=== PATIENT | female | born 1950 | race Caucasian/White ===

== ENCOUNTER 2024-08-16 19:36 | Observation (INO) ==
--- NOTE | 2024-08-16 20:20 | Emergency Department Note ---
Impression & Plan Left leg paresthesias, Acute UTI, Facial droop ED Provider Note NAME: ZULEYKA TREVIÑO AGE: 74 SEX: F : 1950 ARRIVES VIA: Ambulance INFORMANT: Patient ED PROVIDER(S): Brody Magaña DO CHIEF COMPLAINT: Weakness, left-sided facial droop HPI: Patient is a 74-year-old female with dementia who presents to the ER with son present at bedside who has had left-sided facial droop which he noticed earlier today as well as left-sided weakness and numbness which was present yesterday. Patient denies all complaints including headache, chest pain, and belly pain. No urinary symptoms. Son believes that she currently at her baseline. No other exacerbating or remitting factors. ADDITIONAL HISTORY OBTAINED: Per HPI Chronic Medical/Social Conditions Affecting Care: Per HPI PAST MEDICAL HISTORY:See Below PAST SURGICAL HISTORY:See Below FAMILY HISTORY:See Below SOCIAL HISTORY:See Below HOME MEDICATIONS:See Below ALLERGIES:See Below VITALS:See Below PHYSICAL EXAMINATION: GENERAL: Sitting up in bed, alert, well appearing, well nourished, no distress, non-toxic EYE EXAM: normal conjunctiva. PERRL and EOM's grossly intact. OROPHARYNX: no exudate, no erythema, lips, buccal mucosa, and tongue normal and mucous membranes are moist NECK: supple, no nuchal rigidity, no adenopathy, non-tender LUNGS: Clear to auscultation. Normal chest wall mechanics HEART: no murmurs, S1 normal and S2 normal ABDOMEN: abdomen soft, non-tender, normo-active bowel sounds, no masses, no rebound or guarding. BACK: Back is symmetrical on inspection and there is no deformity, no midline tenderness, no CVA tenderness. SKIN: no rashes and no bruising UPPER EXTREMITIES: upper extremities are grossly normal. LOWER EXTREMITIES: No pitting edema. NEURO EXAM: Awake and alert at baseline per son, cranial nerves II-XII grossly intact, normal speech, no weakness of arms, no weakness of legs. MEDICAL DECISION MAKING: Patient is a 74-year-old female pleasantly demented who brought in by family for the below stated complaint. IV was established and blood work was obtained. Labs show no significant leukocytosis or anemia. BMP with mild hypokalemia 3.0. LFTs and bilirubin is unremarkable. Troponin negative. Lipase normal. UA was contaminated but does appear to be consistent with UTI. CT of the head was unremarkable. Chest x-ray was clean. Patient was given IV Rocephin. Updated bedside. Discussed case with the hospitalist for further evaluation management treatment in regards to the left-sided paresthesias and weakness. Consults/Care Managements Discussions: Per [facility] Triage Nursing notes reviewed. Limited review of prior medical records performed Vital Signs: reviewed and remarkable for HTN Differential diagnosis: Infection, dehydration, metabolic abnormality, hypo/hyperglycemia, electrolyte disturbance, anemia, hypoxia, cardiac sources, intracerebral event, toxicologic, neurologic, as well as other pathologies. ER treatment provided: See below Diagnostics interpreted by me include EKG and cardiac monitoring as listed below: -Cardiac Monitoring: An order was placed for continuous cardiac monitoring. The monitor shows a rate of 60 with sinus rhythm. -ECG: Sinus bradycardia rate of 50 Normal axis No PVCs Right bundle branch block T wave inversion V1 through V6 QTc 519 No significant change from previous -Laboratory studies:Interpreted by me as stated above in MDM and shown below. Imaging studies: Xrays: As interpreted by me: Portable AP upright 1 view of the chest shows no focal infiltrate CTs show: CT of the head was negative per radiology Procedures: None Critical Care: None Past Med/Surg History Problem List Facial droop (Acute) Acute UTI (Acute) Left leg paresthesias (Acute) Facial asymmetry Encounter for pre-operative examination Post-operative state Post-operative state Medical History (Updated 08/17/24 @ 00:23 by Brody Magaña DO) Osteoarthritis Urinary leakage Dementia Hypertension Hyperlipidemia Surgical History History of total knee replacement RT/LEFT History of cholecystectomy History of tooth extraction Family History Mother Family history of diabetes mellitus Social History Smoking Status: Never smoker Second Hand Exposure: No; Do You Dip or Chew Tobacco: No; Hx Alcohol Use: No Hx Substance Use: No Preferred Language: Sammarinese Communication Ability: Effective Chrome Tanner Required: No Beliefs That Will Affect Care: None Current Living Situation: Spouse Feels Safe at Home: Yes Assistive Devices: Denture - Upper, Glasses and Hearing Aid - Bilateral Allergies Allergies Allergy/AdvReac Type Severity Reaction Status Date / Time lisinopril AdvReac tightness Verified 09/13/18 07:43 in chest and dry throat Home Meds Home Medications Medication Instructions Recorded Confirmed aspirin 81 mg tablet,delayed 81 mg PO DAILY 08/03/18 08/16/24 release (Aspir-Low) atorvastatin 20 mg tablet 20 mg PO QAM 08/03/18 08/16/24 donepezil 10 mg tablet 10 mg PO QAM 08/03/18 08/16/24 losartan 50 mg tablet 25 mg PO QAM 08/03/18 08/16/24 quetiapine 50 mg tablet (Seroquel) 50 mg PO HS 09/17/23 08/16/24 hydrochlorothiazide 12.5 mg capsule 12.5 mg PO QAM 07/29/24 08/16/24 memantine 10 mg tablet 10 mg PO BID 07/29/24 08/16/24 Results & Data (ED) Vital Signs Vital Signs - 24 hr 08/16/24 19:44 08/16/24 19:47 08/16/24 19:58 Temperature 36.5 C Temperature Source Oral Pulse Rate 56 L 58 L Pulse Rate [Apical] 58 L Pulse Rhythm Regular Pulse Rhythm [Apical] Regular Pulse Strength Normal Pulse Strength [Apical] Normal Respiratory Rate 17 18 Respiratory Effort / Characteristics Non-Labored Non-Labored Respiratory Depth Normal Normal Respiratory Pattern Regular Regular Blood Pressure 170/103 H Blood Pressure [Right Arm] 168/84 H Blood Pressure Mean 125 Blood Pressure Mean [Right Arm] 112 Blood Pressure Position Sitting Blood Pressure Position [Right Arm] Sitting Pulse Oximetry 98 98 Oxygen Delivery Method Room Air Room Air Sepsis Recent Fever Within 48 Hours No Sepsis New/Unexplained Change in Mental Status No Sepsis Action Taken by Nursing No Action Required 08/16/24 20:44 08/16/24 21:44 08/16/24 23:00 Temperature Temperature Source Pulse Rate 56 L Pulse Rate [Apical] 48 L 52 L Pulse Rhythm Regular Pulse Rhythm [Apical] Regular Regular Pulse Strength Pulse Strength [Apical] Normal Normal Respiratory Rate 17 18 18 Respiratory Effort / Characteristics Non-Labored Non-Labored Respiratory Depth Normal Normal Respiratory Pattern Regular Regular Blood Pressure Blood Pressure [Right Arm] 169/74 H 151/91 H Blood Pressure Mean Blood Pressure Mean [Right Arm] 105 111 Blood Pressure Position Blood Pressure Position [Right Arm] Sitting Lying Pulse Oximetry 98 97 97 Oxygen Delivery Method Room Air Room Air Room Air Sepsis Recent Fever Within 48 Hours Sepsis New/Unexplained Change in Mental Status Sepsis Action Taken by Nursing 08/16/24 23:50 Temperature Temperature Source Pulse Rate 55 L Pulse Rate [Apical] Pulse Rhythm Pulse Rhythm [Apical] Pulse Strength Pulse Strength [Apical] Respiratory Rate Respiratory Effort / Characteristics Respiratory Depth Respiratory Pattern Blood Pressure Blood Pressure [Right Arm] Blood Pressure Mean Blood Pressure Mean [Right Arm] Blood Pressure Position Blood Pressure Position [Right Arm] Pulse Oximetry Oxygen Delivery Method Sepsis Recent Fever Within 48 Hours Sepsis New/Unexplained Change in Mental Status Sepsis Action Taken by Nursing Laboratory Data 08/16/24 20:40 08/16/24 20:40 Lab Results 08/16/24 08/16/24 Range/Units 20:40 21:10 WBC 6.57 (4.8-10.8) K/ul RBC 4.83 (4.20-5.40) M/uL Hgb 15.4 (12.0-16.0) g/dl Hct 43.7 (37.0-47.0) % MCV 90.5 (80.0-100.0) fL MCH 31.9 (25.0-34.0) pg MCHC 35.2 (32.0-36.0) g/dL RDW Std Deviation 41.5 (36.4-46.3) fL RDW Coeff of [place] 12.6 (11.5-14.5) % Plt Count 154 (130-400) K/uL MPV 10.1 (9.4-12.4) fL Immature Gran % (Auto) 0.5 % Neut % (Auto) 72.3 % Lymph % (Auto) 17.0 % [place] % (Auto) 9.0 % Eos % (Auto) 0.6 % Baso % (Auto) 0.6 % Neut # (Auto) 4.75 (1.40-6.50) K/uL Lymph # (Auto) 1.12 L (1.20-3.40) K/uL [place] # (Auto) 0.59 (0.11-0.59) K/uL Eos # (Auto) 0.04 (0.00-0.50) K/uL Baso # (Auto) 0.04 (0.00-0.20) K/uL Immature Gran # (Auto) 0.03 (0.01-0.20) K/uL Sodium 140 (136-145) mmol/L Potassium 3.0 L (3.5-5.1) mmol/L Chloride 100 (98-107) mmol/L Carbon Dioxide 29 (21-32) mmol/L Anion Gap 11 (3-11) BUN 18 (6-23) mg/dl Creatinine 1.07 (0.6-1.2) mg/dl Est Cr Clr Drug Dosing 43.1 ml/min eGFR 54.17 BUN/Creatinine Ratio 16.8 (10-20) Glucose 75 (70-99(Fasting)) mg/dl Calcium 8.2 L (8.6-10.3) mg/dl Total Bilirubin 1.2 H (0.2-1.0) mg/dl AST 46 H (13-39) U/L ALT 30 (7-52) U/L Alkaline Phosphatase 142 H (34-104) U/L Troponin I High Sens 9.3 (0-14) pg/ml Total Protein 5.8 L (6.0-8.3) gm/dl Albumin 3.6 (3.4-5.0) gm/dl Globulin 2.2 L (2.5-4.0) gm/dl Albumin/Globulin Ratio 1.6 (0.9-2) Lipase 45 (11-82) U/L Urine Color Yellow Urine Appearance Cloudy A (Clear) Urine pH 5.5 (4.5-7.5) Ur Specific [place] 1.017 (1.000-1.030) Urine Protein Negative (Negative) Urine Glucose (UA) Negative (Negative) Urine Ketones 1+ H (Negative) Urine Blood Negative (Negative) Urine Nitrite Negative (Negative) Urine Bilirubin Negative (Negative) Urine Urobilinogen Negative (Negative) Ur Leukocyte Esterase 2+ H (Negative) Urine WBC (Auto) 21-50 H (0-5) /hpf Urine RBC (Auto) 3-5 H (0-2) /hpf U Hyaline Cast (Auto) 3-5 H (0-2) /lpf U Epithel Cells (Auto) 6-10 H (0-2) /hpf Urine Bacteria (Auto) 3+ H (None Seen) Administered Medications Discontinued Medications Sodium Chloride (Nss) 1,000 mls @ 999 mls/hr IV .Q1H1M ONE Stop: 08/16/24 21:15 Last Infusion: 08/16/24 22:24 Dose: Infused Documented By: Admin: 08/16/24 21:17 Dose: 999 mls/hr Documented By: LETICIA Ceftriaxone Sodium (Rocephin) 2,000 mg in 50 mls @ 100 mls/hr IV NOW STA Stop: 08/16/24 22:12 Last Infusion: 08/16/24 22:52 Dose: Infused Documented By: Admin: 08/16/24 22:21 Dose: 100 mls/hr Documented By: LETICIA Ioversol (Optiray 320 125ml) 119 ml IV ONCE ONE Stop: 08/16/24 23:50 Last Admin: 08/16/24 23:50 Dose: 119 ml Documented By: [facility] Imaging Data Radiologist's Impression: Chest X-Ray 08/16/24 20:15 Exam(s): XR CXR 1 VIEW EXAM: XR Chest, 1 View CLINICAL HISTORY: Reason for exam: Chest pain, nonspecific. TECHNIQUE: Frontal view of the chest. COMPARISON: Chest radiograph On 07/29/2024 FINDINGS: Hardware: None. Lungs/pleura: Normal. No focal consolidation. No pleural effusion or pneumothorax. Heart/mediastinum: Normal. No cardiomegaly. Soft tissues: Unremarkable. Bones: No acute fracture. Upper abdomen: Normal. IMPRESSION: No acute disease identified. Electronically signed by: Liliana Cobb M.D. 08/16/24 22:[address] 08/16/24 20:15 CR Exam(s): CT HEAD Without Contrast EXAM: CT Head Without Intravenous Contrast CLINICAL HISTORY: Reason for exam: Left-sided weakness and facial droop. TECHNIQUE: Axial computed tomography images of the head/brain without intravenous contrast. CTDI is 37.69 mGy and DLP is 625.8 mGy-cm. Automated exposure control was utilized for the study. A dose lowering technique was utilized adhering to the principles of ALARA. COMPARISON: CT head on 06/29/2024 FINDINGS: Brain: No acute infarct or hemorrhage identified. No extra-axial fluid collection. No mass effect or midline shift. Scattered areas of hypoattenuation in the supratentorial white matter likely represent chronic small vessel ischemic changes. Ventricles and sulci: Prominence of the ventricles and sulci is likely secondary to cerebral volume loss. Bones: Mild hyperostosis frontalis interna. No bony lesion or acute fracture. Subcutaneous tissues: Normal. Sinuses: Normal. No air-fluid levels or mucosal thickening. Mastoid air cells: Normal. Orbits: Grossly unremarkable. Other: Atherosclerotic calcifications in the intracranial vasculature. IMPRESSION: 1. No acute intracranial abnormality. 2. Chronic small vessel ischemic changes and cerebral volume loss. Communications: Call Doctor Stroke Electronically signed by: Liliana Cobb M.D. 08/16/24 21:21 PM Discharge Plan Visit Data Chief Complaint: Illness Stated Complaint: NOT EATING/DRINKING ED Provider: Brody Magaña Discharge Problem: Left leg paresthesias, Acute UTI, Facial droop Forms Stand Alone Forms: My [facility] Prescriptions Prescriptions: No Action losartan 50 mg Tablet 25 mg PO QAM atorvastatin 20 mg Tablet 20 mg PO QAM donepezil 10 mg Tablet 10 mg PO QAM aspirin [Aspir-Low] 81 mg Tablet,Delayed Release (Dr/Ec) 81 mg PO DAILY quetiapine [Seroquel] 50 mg tablet 50 mg PO HS hydrochlorothiazide 12.5 mg capsule 12.5 mg PO QAM memantine 10 mg tablet 10 mg PO BID Referrals Referrals: Reshma Neumann DO [Primary Care Provider] -
[2024-08-16 21:05] LABS: Basophils # (auto) 0.04 K/uL (0.00-0.20); Basophils % (auto) 0.6 %; Eosinophils # (auto) 0.04 K/uL (0.00-0.50); Eosinophils % (auto) 0.6 %; Hematocrit (blood only) 43.7 % (37.0-47.0); Hemoglobin 15.4 g/dl (12.0-16.0); Immature Granulocytes # (auto) 0.03 K/uL (0.01-0.20); Immature Granulocytes % (auto) 0.5 %; Lymphocytes # (auto) 1.12 K/uL (1.20-3.40); Mean Corpuscular Hemoglobin 31.9 pg (25.0-34.0); Mean Corpuscular Hgb Conc 35.2 g/dL (32.0-36.0); Mean Corpuscular Volume 90.5 fL (80.0-100.0); Mean Platelet Volume 10.1 fL (9.4-12.4); Monocytes # (auto) 0.59 K/uL (0.11-0.59); Neutrophils # (auto) 4.75 K/uL (1.40-6.50); Neutrophils % (auto) 72.3 %; Platelet Count 154 K/uL (130-400); RDW Coefficient of Variation 12.6 % (11.5-14.5); RDW Standard Deviation 41.5 fL (36.4-46.3); Red Blood Count 4.83 M/uL (4.20-5.40); White Blood Count 6.57 K/ul (4.8-10.8)
[2024-08-16] MEDS: SODIUM CHLORIDE 0.9% 1,000 ML IV ONE (21:17)
[2024-08-16 21:20] LABS: Albumin Globulin Ratio 1.6 (0.9-2); Albumin Level 3.6 gm/dl (3.4-5.0); BUN Creatinine Ratio 16.8 (10-20); Bilirubin,Total 1.2 mg/dl (0.2-1.0); Calcium 8.2 mg/dl (8.6-10.3); Creatinine Clr Calc Pharmacy 43.1 ml/min; Globulin 2.2 gm/dl (2.5-4.0); Total Protein 5.8 gm/dl (6.0-8.3)
--- NOTE | 2024-08-16 21:22 | CT Scan Report ---
Exam(s): CT HEAD Without Contrast EXAM: CT Head Without Intravenous Contrast CLINICAL HISTORY: Reason for exam: Left-sided weakness and facial droop. TECHNIQUE: Axial computed tomography images of the head/brain without intravenous contrast. CTDI is 37.69 mGy and DLP is 625.8 mGy-cm. Automated exposure control was utilized for the study. A dose lowering technique was utilized adhering to the principles of ALARA. COMPARISON: CT head on 06/29/2024 FINDINGS: Brain: No acute infarct or hemorrhage identified. No extra-axial fluid collection. No mass effect or midline shift. Scattered areas of hypoattenuation in the supratentorial white matter likely represent chronic small vessel ischemic changes. Ventricles and sulci: Prominence of the ventricles and sulci is likely secondary to cerebral volume loss. Bones: Mild hyperostosis frontalis interna. No bony lesion or acute fracture. Subcutaneous tissues: Normal. Sinuses: Normal. No air-fluid levels or mucosal thickening. Mastoid air cells: Normal. Orbits: Grossly unremarkable. Other: Atherosclerotic calcifications in the intracranial vasculature. IMPRESSION: 1. No acute intracranial abnormality. 2. Chronic small vessel ischemic changes and cerebral volume loss. Communications: Call Doctor Stroke Electronically signed by: Liliana Cobb M.D. 08/16/24 21:21 PM
[2024-08-16 21:26] LABS: Troponin I High Sensitivity 9.3 pg/ml (0-14)
[2024-08-16 21:39] LABS: Appearance Urine Cloudy (Clear); Bacteria Urine Automated 3+ (None Seen); Bilirubin Urine Negative (Negative); Blood Urine Negative (Negative); Color Urine Yellow; Glucose Urine UA Negative (Negative); Ketones Urine 1+ (Negative); Leukocyte Esterase Urine 2+ (Negative); Nitrite Urine Negative (Negative); Protein Urine Negative (Negative); Specific Gravity Urine 1.017 (1.000-1.030); Urobilinogen Urine Negative (Negative); WBC Urine Automated 21-50 /hpf (0-5); pH Urine 5.5 (4.5-7.5)
--- NOTE | 2024-08-16 22:12 | XRay Report ---
Exam(s): XR CXR 1 VIEW EXAM: XR Chest, 1 View CLINICAL HISTORY: Reason for exam: Chest pain, nonspecific. TECHNIQUE: Frontal view of the chest. COMPARISON: Chest radiograph On 07/29/2024 FINDINGS: Hardware: None. Lungs/pleura: Normal. No focal consolidation. No pleural effusion or pneumothorax. Heart/mediastinum: Normal. No cardiomegaly. Soft tissues: Unremarkable. Bones: No acute fracture. Upper abdomen: Normal. IMPRESSION: No acute disease identified. Electronically signed by: Liliana Cobb M.D. 08/16/24 22:11 PM
[2024-08-16] MEDS: cefTRIAXone SODIUM 2,000 MG/50 ML BAG IV STA (22:21)
--- NOTE | 2024-08-16 22:31 | History & Physical Report ---
Date of Service August 16, 2024 Assessment & Plan (1) UTI (urinary tract infection): (2) Facial asymmetry: Plan: Patient is a 74-year-old female with Past medical history of hypertension, prediabetes, dyslipidemia, CKD stage IIIa, late onset Alzheimer's dementia Was brought to the hospital by her son for concern of left sided facial droop decreased appetite. Left-sided facial droop, possible CVA Patient was brought to the hospital by her son for concern of left-sided facial droop. Neuro examination on admission did not show any focal neurological finding. However, son reports some facial droop at corner of the mouth compared to baseline. CT head without contrast did not show any acute finding. Obtain CT head and neck with contrast, MRI brain without contrast, echocardiogram with bubble study, PT/OT/BUSINESS REPORTING DEVELOPER eval, Continue on aspirin, increase Lipitor to 40 mg once a day, obtain lipid panel, A1c. Neurology consult in am Acute UTI No leukocytosis present. Urinalysis positive for infection. Started on ceftriaxone for acute UTI; follow-up on final culture results Abnormal EKG EKG on admission showed sinus bradycardia with right bundle branch block, T wave abnormality in inferior lateral leads. Previous EKGs from March 2024 showed similar finding. high sen troponin negative Will obtain echocardiogram tele monitoring Hypokalemia- Repleted, monitor Chronic conditions; Late onset Alzheimer's dementia - continue on memantine, donepezil, Seroquel Hypertension- continue losartan, hydrochlorothiazide Dyslipidemiacontinue on Lipitor Full code DVT prophylaxis heparin Time spent evaluating patient, direct bedside care, chart review, placing orders, interpretation of diagnostic studies, discussion with consultants, patient, and family members, as well as other required patient management activities is 75 minutes Please note the above document was generated using voice recognition software. It may contain grammatical, syntax or spelling errors. Any formal questions or concerns about the content, text or information contained within the body of this dictation should be directly addressed to the provider for clarification History of Present Illness Chief Complaint: Left-sided facial droop for 2 days Primary Care Provider: Reshma Neumann, History obtained from interview with the patient's Son as patient has advanced dementia and chart review Past medical history of hypertension, prediabetes, dyslipidemia, CKD stage IIIa, late onset Alzheimer's dementia Patient was brought to the hospital by her son for concern of left facial droop for last 2 days. He reports that he noticed her left corner of her mouth has slightly drooped compared to before. He denies any reports of any weakness of any other body parts. He has also noticed that she is drinking and eating less or compared to before. No reports of fever, chills, complaints of abdominal pain, chest pain, shortness of breath. Patient reported that she is comfortable; denied any pain or discomfort. She was able to follow simple commands but was not able to provide more information. On presentation to the ED, patient was hypertensive, afebrile and saturating well on room air. No leukocytosis present. BMP remarkable for mild hypokalemia. CMP showed mildly elevated bilirubin of 1.2, AST of 46 and ALP of 142(chronically elevated). Urinalysis positive for infection. CT head without contrast did not show any acute finding. Patient referred for admission. Allergies Allergy/AdvReac Type Severity Reaction Status Date / Time lisinopril AdvReac tightness Verified 09/13/18 07:43 in chest and dry throat Home Medications Medication Instructions Recorded Confirmed Type aspirin 81 mg tablet,delayed 81 mg PO DAILY 08/03/18 08/16/24 History release (Aspir-Low) atorvastatin 20 mg tablet 20 mg PO QAM 08/03/18 08/16/24 History donepezil 10 mg tablet 10 mg PO QAM 08/03/18 08/16/24 History losartan 50 mg tablet 25 mg PO QAM 08/03/18 08/16/24 History quetiapine 50 mg tablet (Seroquel) 50 mg PO HS 09/17/23 08/16/24 History hydrochlorothiazide 12.5 mg capsule 12.5 mg PO QAM 07/29/24 08/16/24 History memantine 10 mg tablet 10 mg PO BID 07/29/24 08/16/24 History Past Med/Surg History Problem List Facial asymmetry Encounter for pre-operative examination Post-operative state Post-operative state Medical History (Updated 08/16/24 @ 22:34 by Lukas Blankenship MD) Osteoarthritis Urinary leakage Dementia Hypertension Hyperlipidemia Surgical History History of total knee replacement RT/LEFT History of cholecystectomy History of tooth extraction Family History Mother Family history of diabetes mellitus Social History Smoking Status: Never smoker Second Hand Exposure: No; Do You Dip or Chew Tobacco: No; Hx Alcohol Use: No Hx Substance Use: No Preferred Language: Kittitian Communication Ability: Effective Pie Bottomer Required: No Beliefs That Will Affect Care: None Current Living Situation: Spouse Feels Safe at Home: Yes Assistive Devices: Denture - Upper, Glasses and Hearing Aid - Bilateral Review of Systems Review of Systems: All systems reviewed & are unremarkable except as noted in Subjective Physical Exam Physical Exam: Constitutional: Awake, alert oriented to self. Able to follow simple commands. Respiratory: normal respiratory effort, lungs clear to auscultation, no wheeze, rales, rhonchi. Normal insp/exp effort, no accessory muscle use Cardiovascular: RRR, no murmur, no edema Vessels: no JVD or carotid bruit Chest: normal inspection of chest Abdomen: normal bowel sounds, soft, nontender, no hepatosplenomegaly Musculoskeletal: no cyanosis or clubbing, extremities motor strength 5/5 Skin: no rashes, warm and dry normal turgor Neurologic: PERRL, EOMI, accommodation nl. Questionable left lower facial droop; no asymmetry when smiling. Strength intact in all extremity 5 x 5. Sensation intact Results & Data Results & Data Vital Signs (Past 12 Hours) Vital Signs Temp Pulse Pulse Resp BP BP Pulse Ox 08/16/24 21:44 48 L 18 169/74 H 97 08/16/24 20:44 56 L 17 98 08/16/24 19:58 58 L 18 168/84 H 98 08/16/24 19:47 36.5 C 58 L 17 170/103 H 98 08/16/24 19:44 56 L O2 Del Method 08/16/24 21:44 Room Air 08/16/24 20:44 Room Air 08/16/24 19:58 Room Air 08/16/24 19:47 Room Air 08/16/24 19:44 (1) UTI (urinary tract infection) Hematuria presence: with hematuria Urinary tract infection type: acute cystitis Qualified Code(s): N30.01 - Acute cystitis with hematuria
[2024-08-16] MEDS: OPTIRAY 320 125ml IV ONE (23:50)
[2024-08-17] MEDS ORDERED: MAGNESIUM HYDROXIDE SUSP 30 ML UDC PO PRN (00:38)
[2024-08-17] MEDS ORDERED: ACETAMINOPHEN 325 MG TAB PO PRN (00:38)
--- NOTE | 2024-08-17 01:03 | CT Scan Report ---
Exam(s): CTA HEAD With Contrast IV Amt: 119 cc opti 320 EXAM: CT Angiography Head With Intravenous Contrast CLINICAL HISTORY: Reason for exam: concern of stroke. TECHNIQUE: Axial computed tomographic angiography images of the head with intravenous contrast. CTDI is 22.84 mGy and DLP is 434.53 mGy-cm. Automated exposure control was utilized for the study. A dose lowering technique was utilized adhering to the principles of ALARA. MIP reconstructed images were created and reviewed. CONTRAST: Patient received 119 cc opti 320 of IV contrast COMPARISON: None FINDINGS: Right internal carotid artery: No acute findings. Intracranial segment is patent with no significant stenosis. No aneurysm. Right anterior cerebral artery: Unremarkable. No occlusion or significant stenosis. No aneurysm. Right middle cerebral artery: Unremarkable. No occlusion or significant stenosis. No aneurysm. Right posterior cerebral artery: Unremarkable. No occlusion or significant stenosis. No aneurysm. Right vertebral artery: Unremarkable as visualized. Left internal carotid artery: No acute findings. Intracranial segment is patent with no significant stenosis. No aneurysm. Left anterior cerebral artery: Unremarkable. No occlusion or significant stenosis. No aneurysm. Left middle cerebral artery: Unremarkable. No occlusion or significant stenosis. No aneurysm. Left posterior cerebral artery: Unremarkable. No occlusion or significant stenosis. No aneurysm. Left vertebral artery: Unremarkable as visualized. Basilar artery: Unremarkable. No occlusion or significant stenosis. No aneurysm. IMPRESSION: Normal head CTA. Electronically signed by: Liliana Cobb M.D. 08/17/24 01:02 AM
--- NOTE | 2024-08-17 01:08 | CT Scan Report ---
Exam(s): CTA NECK With Contrast IV Amt: 119 cc opti 320 EXAM: CT Angiography Neck With Intravenous Contrast CLINICAL HISTORY: Reason for exam: concern of stroke. TECHNIQUE: Routine carotid CT angiography protocol was performed with intravenous contrast. NASCET criteria using the distal ICAs for comparison were used for evaluation of stenoses. CTDI is 22.84 mGy and DLP is 434.53 mGy-cm. Automated exposure control was utilized for the study. A dose lowering technique was utilized adhering to the principles of ALARA. MIP reconstructed images were created and reviewed. CONTRAST: Patient received 119 cc opti 320 of IV contrast COMPARISON: None FINDINGS: VASCULATURE: Right common carotid artery: Unremarkable. No occlusion or significant stenosis. No dissection. Right internal carotid artery: Atherosclerotic calcifications of the right carotid bulb. No significant stenosis. No dissection. Right external carotid artery: Unremarkable. No occlusion. Right vertebral artery: Dominant right vertebral artery. No occlusion or significant stenosis. No dissection. Left common carotid artery: Unremarkable. No occlusion or significant stenosis. No dissection. Left internal carotid artery: Atherosclerotic calcifications in the left carotid bulb. No significant stenosis. No dissection. Left external carotid artery: Unremarkable. No occlusion. Left vertebral artery: Unremarkable. No occlusion or significant stenosis. No dissection. Aorta: Atherosclerotic changes in aorta. NECK: Bones/joints: Degenerative changes of the spine. No acute fracture. Soft tissues: Unremarkable. Thyroid: Heterogeneous thyroid could be further evaluated with ultrasound if clinically indicated. Lung apices: Clear. CAROTID STENOSIS REFERENCE USING NASCET CRITERIA: % ICA stenosis = (1 - narrowest ICA diameter/diameter of distal cervical ICA) x 100. Mild - <50% stenosis. Moderate - 50-69% stenosis. Severe - 70-94% stenosis. Near occlusion - 95-99% stenosis. Occluded - 100% stenosis. IMPRESSION: No significant stenosis, occlusion, or dissection. Electronically signed by: Liliana Cobb M.D. 08/17/24 01:07 AM
[2024-08-17] MEDS: ATORVASTATIN 40 MG TAB PO SCH (03:02)
[2024-08-17] MEDS: POTASSIUM CHLORIDE PWD 20 MEQ PACK PO ONE (03:02)
[2024-08-17 04:23] LABS: Basophils # (auto) 0.04 K/uL (0.00-0.20); Basophils % (auto) 0.6 %; Eosinophils # (auto) 0.07 K/uL (0.00-0.50); Hematocrit (blood only) 43.2 % (37.0-47.0); Hemoglobin 15.3 g/dl (12.0-16.0); Immature Granulocytes # (auto) 0.03 K/uL (0.01-0.20); Immature Granulocytes % (auto) 0.4 %; Lymphocytes # (auto) 1.25 K/uL (1.20-3.40); Lymphocytes % (auto) 17.8 %; Mean Corpuscular Hemoglobin 32.1 pg (25.0-34.0); Mean Corpuscular Hgb Conc 35.4 g/dL (32.0-36.0); Mean Corpuscular Volume 90.6 fL (80.0-100.0); Mean Platelet Volume 9.8 fL (9.4-12.4); Neutrophils # (auto) 4.93 K/uL (1.40-6.50); Neutrophils % (auto) 70.2 %; Platelet Count 141 K/uL (130-400); RDW Coefficient of Variation 12.5 % (11.5-14.5); RDW Standard Deviation 41.6 fL (36.4-46.3); Red Blood Count 4.77 M/uL (4.20-5.40); White Blood Count 7.02 K/ul (4.8-10.8)
[2024-08-17 04:38] LABS: Albumin Level 3.4 gm/dl (3.4-5.0); BUN Creatinine Ratio 15.5 (10-20); Bilirubin Direct 0.3 mg/dl (0-0.2); Bilirubin,Total 0.8 mg/dl (0.2-1.0); Calcium 8.2 mg/dl (8.6-10.3); Chol HDL Ratio 3.4 (0-5); Creatinine Clr Calc Pharmacy 44.8 ml/min; Potassium 2.8 mmol/L (3.5-5.1); Total Protein 5.6 gm/dl (6.0-8.3)
[2024-08-17] MEDS: HEPARIN SOD 5,000 UNIT/0.5 ML VIAL SQ SCH (05:50)
[2024-08-17 07:31] LABS: Estimated Average Glucose 91 mg/dl; Hemoglobin A1C 4.8 % (4.5-5.6)
[2024-08-17] MEDS: DONEPEZIL HCL 10 MG TAB PO SCH (08:36)
[2024-08-17] MEDS: ASPIRIN 81 MG ECTAB PO SCH (08:36)
[2024-08-17] MEDS: hydroCHLOROthiazide 25 MG TAB PO SCH (08:37)
[2024-08-17] MEDS: MEMANTINE HCL 10 MG TAB PO SCH (08:37)
[2024-08-17] MEDS: LOSARTAN POTASSIUM 25 MG TAB PO SCH (08:37)
[2024-08-17] MEDS: POTASSIUM CHLORIDE CRTAB 20 MEQ TABCR PO SCH (11:16)
--- NOTE | 2024-08-17 12:04 | Magnetic Resonance Report ---
MR brain wo con HISTORY: 74 years-old Female rule out stroke acute strokelike symptoms COMPARISON: Head CT 08/16/2024 TECHNIQUE: Multiplanar multisequence MRI of the brain was obtained without IV contrast. FINDINGS: No restricted diffusion to suggest acute or subacute infarct. Midline structures appear unremarkable. Degenerative changes of the cervical spine. Study is mildly motion degraded. No acute intracranial hemorrhage, midline shift, abnormal extra axial collection, hydrocephalus or in tra-axial mass. Involutional changes with mild scattered T2/FLAIR hyperintense foci throughout the wh ite matter. Cerebral venous sinuses and major arterial flow voids appear patent. Right-sided lens rep air. Trace left mastoid effusion. IMPRESSION: 1. No acute intracranial abnormality, specifically there is no acute or subacute infarct identified. 2. Involutional changes with suggestion of mild chronic microvascular ischemic disease. ACT 112: Negative or not required by law. The above report was generated using voice recognition software. It may contain grammatical, syntax o r spelling errors. Electronically signed by: John Cobb M.D. 08/17/2024 12:03 PM
[2024-08-17] MEDS: POTASSIUM CHLORIDE 20 MEQ/15 ML UDC PO SCH (12:08)
[2024-08-17] MEDS: POTASSIUM CHLORIDE / WTR 10 MEQ/100 ML PLCT IV SCH (12:08)
--- NOTE | 2024-08-17 12:51 | Neurology Consultation ---
Date of Consultation August 17, 2024 Assessment & Plan (1) Facial droop: No evidence of acute ischemic stroke Recommend continue frequent neurological assessments Obtain stat CT brain without contrast for any acute neurological decline Continue to monitor/control blood pressure & blood glucose Continue to monitor telemetry closely Continue to monitor for s/s of infection Agree with continued antimicrobial therapy Continue to monitor renal and hepatic function, keep euvolemic Metabolic workup should include hgbA1c, fasting lipids Recommend continue daily ASA Consider DAPT for at least 3 weeks Recommend continue high dose statin therapy indefinitely if tolerated Ok from neurology perspective for VTE prophylaxis PT/OT/SLT to eval and treat Follow up outpatient Neurology PRN Telehealth Consultation Telehealth Information Telehealth Information: I performed this visit using a real-time telehealth connection between my location and the patients location ([facility]). After connec ting through interactive tele-video, patient was identified by name and date of and/or wristband check.Patient (or authorized healthcare appliance service representative) was informed that this was a telemedicine visit and it was being conducted confidentially over secure lines. My office door was closed and no one else was present in the room with me.Patient (or authorized healthcare appliance service representative) provided consent to proceed with the visit, expressed an understanding of privacy and security of the telemedicine visit, and gave permission to have a hospital appliance service representative in the room in order to assist with the visit and to conduct portions of the visit, as needed. I informed the patient (or authorized healthcare appliance service representative) that I reviewed their record and presented the opportunity for them to ask any questions regarding the visit today. The patient agreed to participate. History of Present Illness Reason for Consultation: Left sided facial droop Requesting Physician: Dr. Prince Attending Physician: Tolu Prince MD History of Present Illness 74yo female with past medical hx significant for HTN, Dyslipidemia, CKD, Alzheimer's dementia, prediabetes presented to the ER via family who reported she was having decreased appetite and left facial asymmetry. She was hypertensive on arrival. Urinalysis has been reportedly indicative of UTI for which she has been initiated on antimicrobial tx. She has undergone stroke imaging including CT brain without contrast, personally reviewed, revealing no overt evidence of hemorrhage. CT angiographic studies of head and neck, also personally reviewed, reveal no overt evidence of large vessel occlusion or significant/flow limiting stenosis. She has also undergone an MRI of her brain depicting no evidence of acute subacute ischemic stroke. I have performed televideo consultation. Family at bedside helpful as historian. No evidence of facial asymmetry. Bilateral nasolabial folds appears symmetric. She is awake and will follow simple commands/mimic simple commands with repeated encouragement. Neurological exam is non lateralizing/nonfocal in terms of motor strength. Allergies Allergy/AdvReac Type Severity Reaction Status Date / Time lisinopril AdvReac tightness Verified 09/13/18 07:43 in chest and dry throat Home Medications Medication Instructions Recorded Confirmed Type aspirin 81 mg tablet,delayed 81 mg PO DAILY 08/03/18 08/16/24 History release (Aspir-Low) atorvastatin 20 mg tablet 20 mg PO QAM 08/03/18 08/16/24 History donepezil 10 mg tablet 10 mg PO QAM 08/03/18 08/16/24 History losartan 50 mg tablet 25 mg PO QAM 08/03/18 08/16/24 History quetiapine 50 mg tablet (Seroquel) 50 mg PO HS 09/17/23 08/16/24 History hydrochlorothiazide 12.5 mg capsule 12.5 mg PO QAM 07/29/24 08/16/24 History memantine 10 mg tablet 10 mg PO BID 07/29/24 08/16/24 History Patient History Medical History (Updated 08/17/24 @ 00:38 by Rosie Kimbrough) Osteoarthritis Urinary leakage Dementia Hypertension Hyperlipidemia Surgical History History of total knee replacement RT/LEFT History of cholecystectomy History of tooth extraction Family History Mother Family history of diabetes mellitus Social History Smoking Status: Never smoker Second Hand Exposure: No; Do You Dip or Chew Tobacco: No; Hx Alcohol Use: No Hx Substance Use: No Preferred Language: [place] Communication Ability: Unable Junior Underwriter Required: No Beliefs That Will Affect Care: None Current Living Situation: Spouse Feels Safe at Home: Yes Assistive Devices: Other Physical Exam Neurological Examination: Mental Status: Awake Appears in no distress Does not readily speak Will follow simple commands/mimic simple commands CN testing: I: Deferred II:No reported changes in visual acuity III/IV/: No evidence of gaze preference, hippus, nystagmus or roving eye movements V: Facial sensation reportedly grossly intact to light touch bilaterally VII: Facial movements appear without evidence of asymmetry-able to smile, and close eyes tightly VIII: Hearing appears grossly intact to loud voice bilaterally IX/X: Palate is unable to be accurately visualized XI: Shoulder shrug appears symmetric/ grossly intact bilaterally XII: Tongue protrudes midline without evidence of biting Motor exam: Strength appears grossly intact/symmetric in all extremities Sensory: Sensation is reportedly grossly intact throughout Coordination: Deferred Reflexes: Deferred Gait: Deferred Results & Data Vital Signs (Past 12 Hours) Vital Signs Temp Pulse Pulse Resp BP Pulse Ox Pulse Ox 08/17/24 12:07 55 L 15 139/76 95 08/17/24 08:32 36.5 C 51 L 15 128/73 96 08/17/24 07:23 45 L 08/17/24 02:00 50 L 08/17/24 01:09 53 L 18 158/75 H 98 08/17/24 01:09 98 O2 Del Method O2 Del Method 08/17/24 12:07 Room Air 08/17/24 08:32 Room Air 08/17/24 07:23 08/17/24 02:00 08/17/24 01:09 Room Air 08/17/24 01:09 Room Air Laboratory Results Abnormal lab results 08/16/24 08/16/24 08/17/24 Range/Units 20:40 21:10 04:07 Lymph # (Auto) 1.12 L (1.20-3.40) K/uL [place] # (Auto) 0.70 H (0.11-0.59) K/uL Potassium 3.0 L 2.8 L (3.5-5.1) mmol/L Calcium 8.2 L 8.2 L (8.6-10.3) mg/dl Total Bilirubin 1.2 H (0.2-1.0) mg/dl Direct Bilirubin 0.3 H (0-0.2) mg/dl AST 46 H 43 H (13-39) U/L Alkaline Phosphatase 142 H 134 H (34-104) U/L Total Protein 5.8 L 5.6 L (6.0-8.3) gm/dl Globulin 2.2 L (2.5-4.0) gm/dl Urine Appearance Cloudy A (Clear) Urine Ketones 1+ H (Negative) Ur Leukocyte Esterase 2+ H (Negative) Urine WBC (Auto) 21-50 H (0-5) /hpf Urine RBC (Auto) 3-5 H (0-2) /hpf U Hyaline Cast (Auto) 3-5 H (0-2) /lpf U Epithel Cells (Auto) 6-10 H (0-2) /hpf Urine Bacteria (Auto) 3+ H (None Seen) Diagnostic Findings Chest X-Ray 08/16/24 20:15 Exam(s): XR CXR 1 VIEW EXAM: XR Chest, 1 View CLINICAL HISTORY: Reason for exam: Chest pain, nonspecific. TECHNIQUE: Frontal view of the chest. COMPARISON: Chest radiograph On 07/29/2024 FINDINGS: Hardware: None. Lungs/pleura: Normal. No focal consolidation. No pleural effusion or pneumothorax. Heart/mediastinum: Normal. No cardiomegaly. Soft tissues: Unremarkable. Bones: No acute fracture. Upper abdomen: Normal. IMPRESSION: No acute disease identified. Electronically signed by: Liliana Cobb M.D. 08/16/24 22:[address] 08/16/24 20:15 CR Exam(s): CT HEAD Without Contrast EXAM: CT Head Without Intravenous Contrast CLINICAL HISTORY: Reason for exam: Left-sided weakness and facial droop. TECHNIQUE: Axial computed tomography images of the head/brain without intravenous contrast. CTDI is 37.69 mGy and DLP is 625.8 mGy-cm. Automated exposure control was utilized for the study. A dose lowering technique was utilized adhering to the principles of ALARA. COMPARISON: CT head on 06/29/2024 FINDINGS: Brain: No acute infarct or hemorrhage identified. No extra-axial fluid collection. No mass effect or midline shift. Scattered areas of hypoattenuation in the supratentorial white matter likely represent chronic small vessel ischemic changes. Ventricles and sulci: Prominence of the ventricles and sulci is likely secondary to cerebral volume loss. Bones: Mild hyperostosis frontalis interna. No bony lesion or acute fracture. Subcutaneous tissues: Normal. Sinuses: Normal. No air-fluid levels or mucosal thickening. Mastoid air cells: Normal. Orbits: Grossly unremarkable. Other: Atherosclerotic calcifications in the intracranial vasculature. IMPRESSION: 1. No acute intracranial abnormality. 2. Chronic small vessel ischemic changes and cerebral volume loss. Communications: Call Doctor Stroke Electronically signed by: Liliana Cobb M.D. 08/16/24 21:21 PM Head CTA 08/16/24 22:35 Exam(s): CTA HEAD With Contrast IV Amt: 119 cc opti 320 EXAM: CT Angiography Head With Intravenous Contrast CLINICAL HISTORY: Reason for exam: concern of stroke. TECHNIQUE: Axial computed tomographic angiography images of the head with intravenous contrast. CTDI is 22.84 mGy and DLP is 434.53 mGy-cm. Automated exposure control was utilized for the study. A dose lowering technique was utilized adhering to the principles of ALARA. MIP reconstructed images were created and reviewed. CONTRAST: Patient received 119 cc opti 320 of IV contrast COMPARISON: None FINDINGS: Right internal carotid artery: No acute findings. Intracranial segment is patent with no significant stenosis. No aneurysm. Right anterior cerebral artery: Unremarkable. No occlusion or significant stenosis. No aneurysm. Right middle cerebral artery: Unremarkable. No occlusion or significant stenosis. No aneurysm. Right posterior cerebral artery: Unremarkable. No occlusion or significant stenosis. No aneurysm. Right vertebral artery: Unremarkable as visualized. Left internal carotid artery: No acute findings. Intracranial segment is patent with no significant stenosis. No aneurysm. Left anterior cerebral artery: Unremarkable. No occlusion or significant stenosis. No aneurysm. Left middle cerebral artery: Unremarkable. No occlusion or significant stenosis. No aneurysm. Left posterior cerebral artery: Unremarkable. No occlusion or significant stenosis. No aneurysm. Left vertebral artery: Unremarkable as visualized. Basilar artery: Unremarkable. No occlusion or significant stenosis. No aneurysm. IMPRESSION: Normal head CTA. Electronically signed by: Liliana Cobb M.D. 08/17/24 01:02 AM Neck CTA 08/16/24 22:35 Exam(s): CTA NECK With Contrast IV Amt: 119 cc opti 320 EXAM: CT Angiography Neck With Intravenous Contrast CLINICAL HISTORY: Reason for exam: concern of stroke. TECHNIQUE: Routine carotid CT angiography protocol was performed with intravenous contrast. NASCET criteria using the distal ICAs for comparison were used for evaluation of stenoses. CTDI is 22.84 mGy and DLP is 434.53 mGy-cm. Automated exposure control was utilized for the study. A dose lowering technique was utilized adhering to the principles of ALARA. MIP reconstructed images were created and reviewed. CONTRAST: Patient received 119 cc opti 320 of IV contrast COMPARISON: None FINDINGS: VASCULATURE: Right common carotid artery: Unremarkable. No occlusion or significant stenosis. No dissection. Right internal carotid artery: Atherosclerotic calcifications of the right carotid bulb. No significant stenosis. No dissection. Right external carotid artery: Unremarkable. No occlusion. Right vertebral artery: Dominant right vertebral artery. No occlusion or significant stenosis. No dissection. Left common carotid artery: Unremarkable. No occlusion or significant stenosis. No dissection. Left internal carotid artery: Atherosclerotic calcifications in the left carotid bulb. No significant stenosis. No dissection. Left external carotid artery: Unremarkable. No occlusion. Left vertebral artery: Unremarkable. No occlusion or significant stenosis. No dissection. Aorta: Atherosclerotic changes in aorta. NECK: Bones/joints: Degenerative changes of the spine. No acute fracture. Soft tissues: Unremarkable. Thyroid: Heterogeneous thyroid could be further evaluated with ultrasound if clinically indicated. Lung apices: Clear. CAROTID STENOSIS REFERENCE USING NASCET CRITERIA: % ICA stenosis = (1 - narrowest ICA diameter/diameter of distal cervical ICA) x 100. Mild - <50% stenosis. Moderate - 50-69% stenosis. Severe - 70-94% stenosis. Near occlusion - 95-99% stenosis. Occluded - 100% stenosis. IMPRESSION: No significant stenosis, occlusion, or dissection. Electronically signed by: Liliana Cobb M.D. 08/17/24 01:07 AM Brain MRI 08/17/24 00:38 MR brain wo con HISTORY: 74 years-old Female rule out stroke acute strokelike symptoms COMPARISON: Head CT 08/16/2024 TECHNIQUE: Multiplanar multisequence MRI of the brain was obtained without IV contrast. FINDINGS: No restricted diffusion to suggest acute or subacute infarct. Midline structures appear unremarkable. Degenerative changes of the cervical spine. Study is mildly motion degraded. No acute intracranial hemorrhage, midline shift, abnormal extra axial collection, hydrocephalus or intra-axial mass. Involutional changes with mild scattered T2/FLAIR hyperintense foci throughout the white matter. Cerebral venous sinuses and major arterial flow voids appear patent. Right-sided lens repair. Trace left mastoid effusion. IMPRESSION: 1. No acute intracranial abnormality, specifically there is no acute or subacute infarct identified. 2. Involutional changes with suggestion of mild chronic microvascular ischemic disease. ACT 112: Negative or not required by law. The above report was generated using voice recognition software. It may contain grammatical, syntax or spelling errors. Electronically signed by: John Cobb M.D. 08/17/2024 12:03 PM Medications Administered Home Medications Medication Instructions Recorded Confirmed Last Taken aspirin 81 mg tablet,delayed 81 mg PO DAILY 08/03/18 08/16/24 09/17/23 release (Aspir-Low) atorvastatin 20 mg tablet 20 mg PO QAM 08/03/18 08/16/24 09/17/23 donepezil 10 mg tablet 10 mg PO QAM 08/03/18 08/16/24 09/17/23 losartan 50 mg tablet 25 mg PO QAM 08/03/18 08/16/24 09/17/23 quetiapine 50 mg tablet (Seroquel) 50 mg PO HS 09/17/23 08/16/24 09/17/23 hydrochlorothiazide 12.5 mg capsule 12.5 mg PO QA 07/29/24 08/16/24 Unknown memantine 10 mg tablet 10 mg PO BID 07/29/24 08/16/24 Unknown Active Medications Generic Name Dose Route Start Last Admin Trade Name Freq PRN Reason Stop Dose Admin Aspirin 81 mg 08/17/24 09:00 08/17/24 08:36 Aspirin 81 Mg Ectab PO 09/16/24 08:59 81 mg DAILY DEMARIO Administration Atorvastatin Calcium 40 mg 08/17/24 00:38 08/17/24 08:37 Atorvastatin 40 Mg Tab PO 09/16/24 00:37 40 mg QAM DEMARIO Administration Donepezil HCl 10 mg 08/17/24 09:00 08/17/24 08:36 Donepezil Hcl 10 Mg Tab PO 09/16/24 08:59 10 mg QAM DEMARIO Administration Heparin Sodium (Porcine) 5,000 units 08/17/24 06:00 08/17/24 05:50 Heparin Sod 5,000 Unit/0.5 Ml Vial SQ 09/16/24 05:59 5,000 units Q8 DEMARIO Administration Hydrochlorothiazide 12.5 mg 08/17/24 09:00 08/17/24 08:37 Hydrochlorothiazide 25 Mg Tab PO 09/16/24 08:59 12.5 mg QAM DEMARIO Administration Potassium Chloride 10 meq in 100 mls @ 100 mls/hr 08/17/24 10:30 08/17/24 12:08 K Syd / Wtr IV 08/17/24 14:29 100 mls/hr Q1H DEMARIO Administration Losartan Potassium 25 mg 08/17/24 09:00 08/17/24 08:37 Losartan Potassium 25 Mg Tab PO 09/16/24 08:59 25 mg QAM DEMARIO Administration Memantine 10 mg 08/17/24 09:00 08/17/24 08:37 Memantine Hcl 10 Mg Tab PO 09/16/24 08:59 10 mg BID DEMARIO Administration Potassium Chloride 40 meq 08/17/24 11:45 08/17/24 12:08 Potassium Chloride 20 Meq/15 Ml Udc PO 08/17/24 13:46 40 meq Q2H DEMARIO Administration
[2024-08-17] MEDS: NSS + 20MEQ KCL 20 MEQ/1,000 ML BAG IV SCH (13:20)
--- NOTE | 2024-08-17 13:41 | Electrocardiogram Report ---
Test Reason : Blood Pressure : */* mmHG Vent. Rate : 50 BPM Atrial Rate : 50 BPM P-R Int : 140 ms QRS Dur : 124 ms QT Int : 570 ms P-R-T Axes : 89 -7 -42 degrees QTcB Int : 519 ms Sinus bradycardia Right bundle branch block T wave abnormality, consider inferolateral ischemia Abnormal ECG When compared with ECG of 29-Jul-2024 12:21, Premature ventricular complexes are no longer Present Confirmed by Cruzito Perez ([id number]) on 08/17/2024 1:40:40 PM Referred By: REFERRED SELF Confirmed By: Cruzito Perez
--- NOTE | 2024-08-17 15:21 | Hospitalist Progress Note ---
Date of Service August 17, 2024 Assessment & Plan (1) UTI (urinary tract infection): (2) Facial asymmetry: Plan: 74-year-old female with Past medical history of hypertension, prediabetes, dyslipidemia, CKD stage IIIa, late onset Alzheimer's dementia was brought to the hospital by her son for concern of left sided facial droop x 2 days and decreased appetite. Left-sided facial droop, possible CVA Patient was brought to the hospital by her son for concern of left-sided facial droop. Neuro examination on admission did not show any focal neurological finding. However, son reported some facial droop at corner of the mouth compared to baseline. CT head without contrast did not show any acute finding. CTA head and CTA neck and MRI brain with no acute findings. A1c 4.8, LDL 51. PT/OT/DRY KILN FEEDER eval, Continue home aspirin, Lipitor increased to 40 mg daily. Continue. Continue frequent neurological assessment. Continue telemetry monitoring. Neurology evaluated, DAPT for 3 weeks. Follow-up neurology as an outpatient. Acute UTI: Urine culture positive for E. coli, follow final sensitivity results. Continue with Rocephin 08/16. Abnormal EKG EKG on admission showed sinus bradycardia with right bundle branch block, T wave abnormality in inferior lateral leads. Previous EKGs from March 2024 showed similar finding. high sen troponin negative. Echo with EF of 60 to 65%, LV wall motion normal, no interatrial shunt noted. Continue with daily monitoring. Hypokalemia- IV potassium replacement ordered today, repeat BMP at 5 PM and in AM. Chronic conditions; Late onset Alzheimer's dementia - continue on memantine, donepezil, Seroquel Hypertension- continue losartan, hydrochlorothiazide Dyslipidemiacontinue on Lipitor Full code DVT prophylaxis heparin Admission and Anticipated Discharge Date Admission Date: August 16, 2024 Subjective Patient was seen and examined at bedside. Patient was sitting up in bed, on room air, NAD, resting comfortably. Patient is hard of hearing, denies pain, ROS not able due to confusion/cognition status. Patient able to follow basic commands. Per RN patient not taking her potassium tablet but was able to take her other tablets. Patient put on IV potassium and potassium elixir to replenish hypokalemia noted in AM lab. Physical Exam Physical Exam: Constitutional: Awake, alert oriented to self. Able to follow simple commands. Respiratory: normal respiratory effort, lungs clear to auscultation, no wheeze, rales, rhonchi. Normal insp/exp effort, no accessory muscle use Cardiovascular: RRR, no murmur, no edema Vessels: no JVD or carotid bruit Chest: normal inspection of chest Abdomen: normal bowel sounds, soft, nontender, no hepatosplenomegaly Musculoskeletal: no cyanosis or clubbing, extremities motor strength 5/5 Skin: no rashes, warm and dry normal turgor Neurologic: PERRL, EOMI, accommodation nl. no facial droop; no asymmetry when smiling. Strength intact in all extremity 5 x 5. Sensation intact Results & Data Results & Data Vital Signs (Past 12 Hours) Vital Signs Temp Pulse Pulse Resp BP Pulse Ox O2 Del Method 08/17/24 13:26 58 L 18 127/81 95 Room Air 08/17/24 12:07 55 L 15 139/76 95 Room Air 08/17/24 08:32 36.5 C 51 L 15 128/73 96 Room Air 08/17/24 07:23 45 L (1) UTI (urinary tract infection) Hematuria presence: with hematuria Urinary tract infection type: acute cystitis Qualified Code(s): N30.01 - Acute cystitis with hematuria
[2024-08-17] MEDS: POTASSIUM CHLORIDE CRTAB 20 MEQ TABCR PO STA (16:03)
[2024-08-17] MEDS: CLOPIDOGREL BISULFATE 75 MG TAB PO ONE (16:49)
[2024-08-17 17:50] LABS: BUN Creatinine Ratio 12.6 (10-20); Calcium 8.7 mg/dl (8.6-10.3); Creatinine Clr Calc Pharmacy 47.8 ml/min; Potassium 4.1 mmol/L (3.5-5.1)
[2024-08-17] MEDS: QUEtiapine FUMARATE 25 MG TABLET PO SCH (20:27)
[2024-08-17] MEDS: cefTRIAXone SODIUM 2,000 MG/50 ML BAG IV SCH (20:31)
[2024-08-17 20:57] VITALS: RESP 18
[2024-08-18 06:11] LABS: Calcium 8.6 mg/dl (8.6-10.3); Magnesium 1.6 mg/dl (1.7-2.4); Potassium 3.6 mmol/L (3.5-5.1)
[2024-08-18 06:16] LABS: BUN Creatinine Ratio 12.2 (10-20); Creatinine Clr Calc Pharmacy 50.5 ml/min; Phosphorus 2.4 mg/dl (2.5-4.9)
[2024-08-18 08:12] VITALS: TEMP 97.5
[2024-08-18] MEDS: MAGNESIUM SULFATE / D5W 1 GM/100 ML BAG IV SCH (08:27)
[2024-08-18] MEDS: POT PHOSPHATE MONOBASIC W/ SOD TAB PO SCH (08:32)
[2024-08-18] MEDS: CLOPIDOGREL BISULFATE 75 MG TAB PO SCH (09:44)
[2024-08-18 11:57] VITALS: O2SAT 94
[2024-08-18 12:11] VITALS: BP 127/81; PULSE 58
--- NOTE | 2024-08-18 12:12 | Discharge Summary ---
Date of Service August 18, 2024 Admission HPI Per Admitting Provider History obtained from interview with the patient's Son as patient has advanced dementia and chart review Past medical history of hypertension, prediabetes, dyslipidemia, CKD stage IIIa, late onset Alzheimer's dementia Patient was brought to the hospital by her son for concern of left facial droop for last 2 days. He reports that he noticed her left corner of her mouth has slightly drooped compared to before. He denies any reports of any weakness of any other body parts. He has also noticed that she is drinking and eating less or compared to before. No reports of fever, chills, complaints of abdominal pain, chest pain, shortness of breath. Patient reported that she is comfortable; denied any pain or discomfort. She was able to follow simple commands but was not able to provide more information. On presentation to the ED, patient was hypertensive, afebrile and saturating well on room air. No leukocytosis present. BMP remarkable for mild hypokalemia. CMP showed mildly elevated bilirubin of 1.2, AST of 46 and ALP of 142(chronically elevated). Urinalysis positive for infection. CT head without contrast did not show any acute finding. Patient referred for admission. Admission Exam Per Admitting Provider Constitutional: Awake, alert oriented to self. Able to follow simple commands. Respiratory: normal respiratory effort, lungs clear to auscultation, no wheeze, rales, rhonchi. Normal insp/exp effort, no accessory muscle use Cardiovascular: RRR, no murmur, no edema Vessels: no JVD or carotid bruit Chest: normal inspection of chest Abdomen: normal bowel sounds, soft, nontender, no hepatosplenomegaly Musculoskeletal: no cyanosis or clubbing, extremities motor strength 5/5 Skin: no rashes, warm and dry normal turgor Neurologic: PERRL, EOMI, accommodation nl. Questionable left lower facial droop; no asymmetry when smiling. Strength intact in all extremity 5 x 5. Sensation intact Principal Diagnosis Concern for stroke Acute UTI Progression of Alzheimer's dementia Discharge Exam Constitutional: Awake, alert oriented to self. Able to follow simple commands. Respiratory: normal respiratory effort, lungs clear to auscultation, no wheeze, rales, rhonchi. Normal insp/exp effort, no accessory muscle use Cardiovascular: RRR, no murmur, no edema Vessels: no JVD or carotid bruit Chest: normal inspection of chest Abdomen: normal bowel sounds, soft, nontender, no hepatosplenomegaly Musculoskeletal: no cyanosis or clubbing, extremities motor strength 5/5 Skin: no rashes, warm and dry normal turgor Neurologic: PERRL, EOMI, accommodation nl. no facial droop; no asymmetry when smiling. Strength intact in all extremity 5 x 5. Sensation intact Discharge Data Allergies Allergy/AdvReac Type Severity Reaction Status Date / Time lisinopril AdvReac tightness Verified 09/13/18 07:43 in chest and dry throat Consultations 08/16/24 21:43 ED Decision to Admit Stat 08/17/24 08:00 Consult Neurology Routine Ordered Studies 08/16/24 20:15 CT head/brain wo con Stat 08/16/24 22:35 CTA head w con [CT angio head w con] Routine CTA neck with con [CT angio neck with con] Routine 08/17/24 00:38 MRI Brain [MR brain wo con] Routine Hospital Course (1) UTI (urinary tract infection): (2) Facial asymmetry: 74-year-old female with Past medical history of hypertension, prediabetes, dyslipidemia, CKD stage IIIa, late onset Alzheimer's dementia was brought to the hospital by her son for concern of left sided facial droop x 2 days and decreased appetite. She was managed for the following: Left-sided facial droop, possible CVA Patient was brought to the hospital by her son for concern of left-sided facial droop. Neuro examination on admission did not show any focal neurological finding. However, son reported some facial droop at corner of the mouth compared to baseline. CT head without contrast did not show any acute finding. CTA head and CTA neck and MRI brain with no acute findings. A1c 4.8, LDL 51. PT/OT/MUD LOGGER eval, Continue home aspirin, Lipitor increased to 40 mg daily. Continue. Continue frequent neurological assessment. Continue telemetry monitoring. Neurology evaluated, DAPT for 3 weeks. Follow-up neurology as an outpatient. Acute UTI: Urine culture positive for E. coli, follow final sensitivity results. Continue with Rocephin 08/16. to PO antibiotic on dc to complete the course. Abnormal EKG EKG on admission showed sinus bradycardia with right bundle branch block, T wave abnormality in inferior lateral leads. Previous EKGs from March 2024 showed similar finding. high sen troponin negative. Echo with EF of 60 to 65%, LV wall motion normal, no interatrial shunt noted. Continue with daily monitoring. Hypokalemia- IV potassium replacement ordered today, repeat BMP at 5 PM and in AM. Chronic conditions; Late onset Alzheimer's dementia - continue on memantine, donepezil, Seroquel Hypertension- continue losartan, hydrochlorothiazide Dyslipidemiacontinue on Lipitor Full code DVT prophylaxis heparin Patient is being discharged to home with home health and strong family support with following instructions at the point of discharge: Follow-up with your primary care physician within a week time and likely you will need labs CBC/CMP/magnesium/phosphorus. You were evaluated for concern of stroke, neurology evaluated you, continue taking Plavix as prescribed for the next 19 days. Avoid omeprazole while on Plavix. Continue with your daily aspirin as prior. Your Lipitor dose has been increased to 40 mg daily. Follow-up with neurology in 2 to 4 weeks time upon discharge. Also there is a strong concern for progression of her Alzheimer's dementia, you will likely benefit from establishing with outpatient palliative care. Coordinate with your PCP office to set up the referral. You will be discharged on antibiotic to complete the course for UTI. Take your medications as prescribed. Please make sure that you are able to get your medications today by calling your pharmacy before you leave the hospital so that your treatment continuity is not broken. Home Health Attestation I certify that this patient is under my care and that I, or a physicians circulation assistant working with me, had a face to-face encounter that meets the home health [id number] encounter requirements with this patient. The encounter with the patient was in whole, or in part, for the following medical condition, which is the primary reason for home health care (list medical condition): I certify that, based on my findings, the following services are medically necessary home health services: My clinical findings support the need for the above services because: Further, I certify that my clinical findings support that this patient is homebound (i.e. absences from home require considerable and taxing effort and are for medical reasons or congregational services or infrequently or of short duration when for other reasons) because: Certification for Home Health Services: Based on the above findings, I certify that this patient is confined to the home and needs intermittent alf care, physical therapy and/or speech therapy or continues to need occupational therapy. The patient is under my care, and I have initiated the establishment of the plan of care. This patient will be followed by a physician who will periodically review the plan of care. Total Time Total Time Spent Total Time Spent (In Minutes): 35 Discharge Plan Discharge Items Patient Disposition: Home - Home Health Services Reason For Visit: STROKE, UTI Discharge Diagnosis: Concern for stroke Acute UTI Progression of Alzheimer's dementia Activity: Resume your previous activity Non-emergency contact: Primary Care Provider Call non-emergency contact if: you have any medication questions and your symptoms worsen Follow-up/Referrals: Reshma Neumann, [Primary Care Provider] - Diet: Regular Diet Texture: Easy to Chew Addtl Attending Provider Instructions: Follow-up with your primary care physician within a week time and likely you will need labs CBC/CMP/magnesium/phosphorus. You were evaluated for concern of stroke, neurology evaluated you, continue taking Plavix as prescribed for the next 19 days. Avoid omeprazole while on Plavix. Continue with your daily aspirin as prior. Your Lipitor dose has been increased to 40 mg daily. Follow-up with neurology in 2 to 4 weeks time upon discharge. Also there is a strong concern for progression of her Alzheimer's dementia, you will likely benefit from establishing with outpatient palliative care. Coordinate with your PCP office to set up the referral. You will be discharged on antibiotic to complete the course for UTI. Take your medications as prescribed. Please make sure that you are able to get your medications today by calling your pharmacy before you leave the hospital so that your treatment continuity is not broken. Pending Studies at Discharge: No Stand-Alone Forms: My [facility], Smoking Cessation Medications and DC Order Prescriptions: New clopidogrel 75 mg Tablet 75 mg PO QAM 19 Days Qty: 19 0RF atorvastatin 40 mg Tablet 40 mg PO QAM Qty: 30 0RF cefdinir 300 mg capsule 300 mg PO BID 5 Days Qty: 10 0RF Continued losartan 50 mg Tablet 25 mg PO QAM donepezil 10 mg Tablet 10 mg PO QAM aspirin [Aspir-Low] 81 mg Tablet,Delayed Release (Dr/Ec) 81 mg PO DAILY quetiapine [Seroquel] 50 mg tablet 50 mg PO HS hydrochlorothiazide 12.5 mg capsule 12.5 mg PO QAM memantine 10 mg tablet 10 mg PO BID Discontinued atorvastatin 20 mg Tablet 20 mg PO QAM Discharge Orders: Discharge Order (Routine); Ordered 08/18/24 Ordered By: Tolu Prince Admission Data Admit Date/Time: 08/16/24 22:26 Attending Provider: Tolu Prince Admit Provider: Lukas Blankenship Primary Care Provider: Reshma Neumann Other Providers: Lukas Blankenship; Dorys King; Kendell Koroma; Dorys Nguyen; Romero Poe; Nemesio Boles; Daniel Srinivasan; Nadeem Barger; Yajaira Perry; Edin Lange; Bradley Summers; Abhinav Russo; Williams Yao; Zeny Jensen; Eleanor Child; Nadeem Goddard; Thelma Blanc
== END 2024-08-18 13:18 | disposition home health service (06) ==
LOC: ED 19:36 → EDINP 22:26 → INTOOBSV 22:26 → 2N 08-17 00:39

== ENCOUNTER 2024-11-01 19:19 | Observation (INO) ==
[2024-11-01 19:30] VITALS: TEMP 98.1
--- NOTE | 2024-11-01 20:03 | Emergency Department Note ---
Impression & Plan Acute constipation, Stercoral colitis, Fecal impaction in rectum ED Provider Note HISTORY OF PRESENT ILLNESS: Patient is a 74-year-old female presenting with constipation. Family reports the patient has been constipated for the last 2 weeks. Daughter reports that they have been giving the patient stool softeners and prune juice, per hospice. Patient is on hospice for a history of Alzheimer's dementia. She is on morphine for pain control. Daughter reports that yesterday while cleaning the patient up from her episodes of loose stool, she noticed a very large ball protruding from the patient's rectum. Patient reportedly complained of pain with sitting and laying down. Hospice nurse visited the patient today and referred them to the emergency department, due to concern for rectal obstruction. No reported vomiting. No recent fevers. ROS: as above PHYSICAL EXAM: Constitutional: Patient appears in no acute distress. HENT: Head: Normocephalic and atraumatic. Eyes: EOMI, PERRL Mouth/Throat: Mucous membranes moist. Neck: Trachea midline. Neck supple. Cardiovascular: RRR, No murmurs, rubs or gallops. Intact distal pulses. Pulmonary/Chest: No respiratory distress. Breath sounds clear and equal bilaterally. No wheezes or rales. Abdominal: Abdomen soft, no tenderness, rebound or guarding. Rectal: Chaperoned by nursing staff. No palpable masses or hemorrhoids. Noted to have a large stool ball in the rectal vault. Stool ball is soft and malleable. Musculoskeletal: No edema, tenderness or deformity noted. Skin: Warm and dry. No rash, erythema, pallor or cyanosis Psychiatric: Appropriate mood and affect for situation. Neurological: Alert and keenly responsive. CN II-XII grossly intact, moving all extremities equally and fully. MDM: - Vitals signs stable. - History obtained via patient's daughter, given patient's dementia. History as above. - Chronic conditions affecting care: Alzheimer's dementia; HTN; HLD - Differential diagnoses include, but are not limited to: Fecal impaction; bowel obstruction; diverticulitis; rectal mass - Order placed for continuous cardiac monitoring. At this time, monitor showed rate of 55 bpm with normal sinus rhythm, per my interpretation. - External medical records reviewed. Discharge summary dated 08/18/2024 was reviewed. Patient was admitted that time due to concern for stroke and acute UTI. - Laboratory workup interpreted by myself showed normal WBC; stable electrolytes; normal lipase; normal lactate - KUB imaging reviewed by myself showed significant constipation, per my interpretation. - CT abdomen/pelvis wo contrast showed significant stool burden throughout the colon and a 7.9 cm distal rectal sigmoid colon stool ball with wall thickening and surrounding inflammation suggesting stercoral colitis. - Patient was initially given a soapsuds enema with very minimal stool output. She was given a milk and molasses enema and had a small bowel movement. - Patient is prescribed morphine in the evening for restlessness and family was requesting this while she was here in the ER. She is given 4 mg IV morphine. - Discussed results with the patient and her family at bedside. Did discuss continuing enemas and suppositories at home to help with the stool ball and continue with the MiraLAX and stool softeners. However, family reports they do not feel comfortable taking the patient home as they do not think that they can proceed with enemas and suppository administration at home. They report that hospice also does not help them with this, as they were referred to the emergency department. - Discussion was had with machine adjuster leader case trim about patient's case and need for admission - Hospitalist, Dr. Lechuga, consulted for admission - [facility] ASSESSMENT AND PLAN: Diagnosis: acute constipation; fecal impaction in rectum; stercoral colitis Plan: Admit Past Med/Surg History Problem List (Updated 08/29/24 @ 00:06 by Background Daemon) Fecal impaction in rectum (Acute) Stercoral colitis (Acute) Acute constipation (Acute) Facial droop (Acute) Left leg paresthesias (Acute) Facial asymmetry Encounter for pre-operative examination Post-operative state Post-operative state Medical History (Updated 11/02/24 @ 00:42 by Nimo Esposito MD) Osteoarthritis Urinary leakage Dementia Hypertension Hyperlipidemia Surgical History (Updated 08/29/24 @ 00:06 by Background Daemon) History of total knee replacement RT/LEFT History of cholecystectomy History of tooth extraction Family History Mother Family history of diabetes mellitus Social History Smoking Status: Never smoker Second Hand Exposure: No; Do You Dip or Chew Tobacco: No; Hx Alcohol Use: No Hx Substance Use: No Preferred Language: Mozambican Communication Ability: Unable Dining Manager Required: No Beliefs That Will Affect Care: None Current Living Situation: Spouse Feels Safe at Home: Yes Assistive Devices: Other Allergies Allergies Allergy/AdvReac Type Severity Reaction Status Date / Time lisinopril AdvReac tightness Verified 11/01/24 20:07 in chest and dry throat Home Meds Home Medications Medication Instructions Recorded Confirmed aspirin 81 mg tablet,delayed 81 mg PO DAILY 08/03/18 11/01/24 release (Aspir-Low) losartan 50 mg tablet 25 mg PO QAM 08/03/18 11/01/24 lorazepam 0.5 mg tablet 0.75 mg PO HS PRN Anxiety 11/01/24 11/01/24 morphine concentrate 10 mg/0.5 mL 3 mg PO HS 11/01/24 11/01/24 oral syringe (FOR ORAL USE ONLY) potassium chloride 10 mEq 20 meq PO QAM 11/01/24 11/01/24 capsule,extended release sennosides 8.6 mg tablet (senna) 8.6 mg PO QAM 11/01/24 11/01/24 Previous Rx's Medication Instructions Recorded atorvastatin 40 mg tablet 40 mg PO QAM #30 tabs 08/18/24 Results & Data (ED) Vital Signs Vital Signs - 24 hr 11/01/24 19:27 11/01/24 19:38 11/01/24 21:20 Temperature 36.7 C Temperature Source Temporal Artery Scan Pulse Rate 90 87 Pulse Rate [Apical] 66 Pulse Rhythm [Apical] Regular Pulse Strength [Apical] Normal Respiratory Rate 16 23 Respiratory Effort / Characteristics Non-Labored Respiratory Depth Normal Normal Respiratory Pattern Blood Pressure 130/71 Blood Pressure [Right Arm] 117/67 Blood Pressure Mean 90 Blood Pressure Mean [Right Arm] 83 Blood Pressure Position [Right Arm] Lying Pulse Oximetry 100 97 Oxygen Delivery Method Room Air Room Air Sepsis Recent Fever Within 48 Hours No Sepsis New/Unexplained Change in Mental Status No Sepsis Action Taken by Nursing No Action Required 11/01/24 22:49 11/01/24 23:35 11/02/24 00:32 Temperature Temperature Source Pulse Rate 65 69 Pulse Rate [Apical] 55 L Pulse Rhythm [Apical] Pulse Strength [Apical] Respiratory Rate 22 19 Respiratory Effort / Characteristics Non-Labored Spontaneous Respiratory Depth Normal Respiratory Pattern Regular Blood Pressure Blood Pressure [Right Arm] 100/58 L Blood Pressure Mean Blood Pressure Mean [Right Arm] 72 Blood Pressure Position [Right Arm] Lying Pulse Oximetry 97 98 Oxygen Delivery Method Room Air Room Air Sepsis Recent Fever Within 48 Hours Sepsis New/Unexplained Change in Mental Status Sepsis Action Taken by Nursing Laboratory Data 11/01/24 20:03 11/01/24 20:03 Lab Results 11/01/24 Range/Units 20:03 WBC 6.83 (4.8-10.8) K/ul RBC 3.93 L (4.20-5.40) M/uL Hgb 12.6 (12.0-16.0) g/dl Hct 38.4 (37.0-47.0) % MCV 97.7 (80.0-100.0) fL MCH 32.1 (25.0-34.0) pg MCHC 32.8 (32.0-36.0) g/dL RDW Std Deviation 45.5 (36.4-46.3) fL RDW Coeff of [place] 12.5 (11.5-14.5) % Plt Count 166 (130-400) K/uL MPV 10.5 (9.4-12.4) fL Immature Gran % (Auto) 0.3 % Neut % (Auto) 71.8 % Lymph % (Auto) 17.7 % [place] % (Auto) 8.6 % Eos % (Auto) 1.0 % Baso % (Auto) 0.6 % Neut # (Auto) 4.90 (1.40-6.50) K/uL Lymph # (Auto) 1.21 (1.20-3.40) K/uL [place] # (Auto) 0.59 (0.11-0.59) K/uL Eos # (Auto) 0.07 (0.00-0.50) K/uL Baso # (Auto) 0.04 (0.00-0.20) K/uL Immature Gran # (Auto) 0.02 (0.01-0.20) K/uL Sodium 141 (136-145) mmol/L Potassium 4.1 (3.5-5.1) mmol/L Chloride 106 (98-107) mmol/L Carbon Dioxide 32 (21-32) mmol/L Anion Gap 3 (3-11) BUN 19 (6-23) mg/dl Creatinine 0.86 (0.6-1.2) mg/dl Est Cr Clr Drug Dosing Not Reportable eGFR 70.41 BUN/Creatinine Ratio 22.1 H (10-20) Glucose 126 H (70-99(Fasting)) mg/dl Lactate 1.0 (0.4-2.0) mmol/L Calcium 8.9 (8.6-10.3) mg/dl Total Bilirubin 0.7 (0.2-1.0) mg/dl AST 26 (13-39) U/L ALT 21 (7-52) U/L Alkaline Phosphatase 148 H (34-104) U/L Total Protein 6.2 (6.0-8.3) gm/dl Albumin 3.8 (3.4-5.0) gm/dl Globulin 2.4 L (2.5-4.0) gm/dl Albumin/Globulin Ratio 1.6 (0.9-2) Lipase 24 (11-82) U/L Administered Medications Discontinued Medications Morphine Sulfate (Morphine Sulfate 4 Mg/Ml 1 Ml Carp\Vial) 4 mg IV NOW STA Stop: 11/01/24 23:18 Last Admin: 11/01/24 23:23 Dose: 4 mg Documented By: Imaging Data Radiologist's Impression: KUB X-Ray 11/01/24 19:31 Exam(s): XR KUB EXAM: XR Abdomen, 4 Views CLINICAL HISTORY: abd pain; constipation. TECHNIQUE: Frontal view of the abdomen/pelvis with upright view of the abdomen and one or more additional views. COMPARISON: No relevant prior studies available. FINDINGS: Abundant stool throughout the colon to the rectum consistent with constipation. Bowel gas pattern otherwise unremarkable. Pelvic probable vascular calcification. Degenerative changes lumbar spine and hips. IMPRESSION: Abundant stool consistent with constipation. Electronically signed by: Rickie Arzola M.D. 11/01/24 23:00 PM Abdomen/Pelvis CT 11/01/24 19:59 Exam(s): CT ABDOMEN + PELVIS Without Contrast EXAM: CT Abdomen and Pelvis Without Intravenous Contrast CLINICAL HISTORY: constipation; lower abd pain. TECHNIQUE: Axial computed tomography images of the abdomen and pelvis without intravenous contrast. CTDI is 14.53 mGy and DLP is 701.99 mGy-cm. Automated exposure control was utilized for the study. A dose lowering technique was utilized adhering to the principles of ALARA. COMPARISON: 07/29/2024 FINDINGS: Lung bases: Unremarkable. No mass. No consolidation. ABDOMEN: Liver: Unremarkable. Gallbladder and bile ducts: Post cholecystectomy. No ductal dilation. Pancreas: Unremarkable. No ductal dilation. Spleen: Unremarkable. No splenomegaly. Adrenals: Unremarkable. No mass. Kidneys and ureters: No obstructive uropathy. No obstructing renal or ureteral calculi. No hydronephrosis or hydroureter. Stomach and bowel: No obstruction or ileus. Sigmoid colon diverticulosis without evidence for diverticulitis. Abundant stool throughout the colon with a prominent 7.9 cm distal rectal sigmoid colon stool ball. Associated distal rectal sigmoid colon wall thickening with surrounding infiltration suggesting stercoral colitis. PELVIS: Appendix: No findings to suggest acute appendicitis. Bladder: Partially contracted with nonspecific wall thickening. No stones. Reproductive: Atrophic uterus with calcification, likely fibroid. Ovaries not well characterized. ABDOMEN and PELVIS: Intraperitoneal space: No free air. No free fluid. Bones/joints: No acute fracture. Soft tissues: Unremarkable. Vasculature: Unremarkable. No abdominal aortic aneurysm. Lymph nodes: Unremarkable. No enlarged lymph nodes. IMPRESSION: Abundant stool throughout the colon with a prominent 7.9 cm distal rectal sigmoid colon stool ball. Associated distal rectal sigmoid colon wall thickening with surrounding infiltration suggesting stercoral colitis. Sigmoid colon diverticulosis without evidence for acute diverticulitis. Otherwise no change. Electronically signed by: Rickie Arzola M.D. 11/01/24 22:57 PM Discharge Plan Visit Data Chief Complaint: Dehydration Stated Complaint: RECTAL OBSTRUCTION, BLOCKAGE, DEHYDRATION ED Provider: Nimo Esposito Discharge Problem: Acute constipation, Stercoral colitis, Fecal impaction in rectum Forms Stand Alone Forms: [facility] [employer] Prescriptions Prescriptions: No Action losartan 50 mg Tablet 25 mg PO QAM aspirin [Aspir-Low] 81 mg Tablet,Delayed Release (Dr/Ec) 81 mg PO DAILY atorvastatin 40 mg Tablet 40 mg PO QAM Qty: 30 0RF sennosides [senna] 8.6 mg Tablet 8.6 mg PO QAM lorazepam 0.5 mg Tablet 0.75 mg PO HS PRN (Reason: Anxiety) morphine concentrate 10 mg/0.5 mL Syringe 3 mg PO HS potassium chloride 10 mEq Capsule, Extended Release 20 meq PO QAM Referrals Referrals: Neumann,Reshma M., DO [Primary Care Provider] -
[2024-11-01 20:21] LABS: Basophils # (auto) 0.04 K/uL (0.00-0.20); Basophils % (auto) 0.6 %; Eosinophils # (auto) 0.07 K/uL (0.00-0.50); Hematocrit (blood only) 38.4 % (37.0-47.0); Hemoglobin 12.6 g/dl (12.0-16.0); Immature Granulocytes # (auto) 0.02 K/uL (0.01-0.20); Immature Granulocytes % (auto) 0.3 %; Lymphocytes # (auto) 1.21 K/uL (1.20-3.40); Lymphocytes % (auto) 17.7 %; Mean Corpuscular Hemoglobin 32.1 pg (25.0-34.0); Mean Corpuscular Hgb Conc 32.8 g/dL (32.0-36.0); Mean Corpuscular Volume 97.7 fL (80.0-100.0); Mean Platelet Volume 10.5 fL (9.4-12.4); Monocytes # (auto) 0.59 K/uL (0.11-0.59); Monocytes % (auto) 8.6 %; Neutrophils % (auto) 71.8 %; Platelet Count 166 K/uL (130-400); RDW Coefficient of Variation 12.5 % (11.5-14.5); RDW Standard Deviation 45.5 fL (36.4-46.3); Red Blood Count 3.93 M/uL (4.20-5.40); White Blood Count 6.83 K/ul (4.8-10.8)
[2024-11-01 20:35] LABS: Alanine Aminotransferase 21 U/L (7-52); Albumin Globulin Ratio 1.6 (0.9-2); Albumin Level 3.8 gm/dl (3.4-5.0); Alkaline Phosphatase 148 U/L (34-104); Anion Gap 3 (3-11); Aspartate Aminotransferase 26 U/L (13-39); BUN Creatinine Ratio 22.1 (10-20); Bilirubin,Total 0.7 mg/dl (0.2-1.0); Blood Urea Nitrogen 19 mg/dl (6-23); Calcium 8.9 mg/dl (8.6-10.3); Carbon Dioxide 32 mmol/L (21-32); Chloride 106 mmol/L (98-107); Globulin 2.4 gm/dl (2.5-4.0); Glucose 126 mg/dl (70-99(Fasting)); Lipase 24 U/L (11-82); Potassium 4.1 mmol/L (3.5-5.1); Sodium 141 mmol/L (136-145); Total Protein 6.2 gm/dl (6.0-8.3)
--- NOTE | 2024-11-01 22:58 | CT Scan Report ---
Exam(s): CT ABDOMEN + PELVIS Without Contrast EXAM: CT Abdomen and Pelvis Without Intravenous Contrast CLINICAL HISTORY: constipation; lower abd pain. TECHNIQUE: Axial computed tomography images of the abdomen and pelvis without intravenous contrast. CTDI is 14.53 mGy and DLP is 701.99 mGy-cm. Automated exposure control was utilized for the study. A dose lowering technique was utilized adhering to the principles of ALARA. COMPARISON: 07/29/2024 FINDINGS: Lung bases: Unremarkable. No mass. No consolidation. ABDOMEN: Liver: Unremarkable. Gallbladder and bile ducts: Post cholecystectomy. No ductal dilation. Pancreas: Unremarkable. No ductal dilation. Spleen: Unremarkable. No splenomegaly. Adrenals: Unremarkable. No mass. Kidneys and ureters: No obstructive uropathy. No obstructing renal or ureteral calculi. No hydronephrosis or hydroureter. Stomach and bowel: No obstruction or ileus. Sigmoid colon diverticulosis without evidence for diverticulitis. Abundant stool throughout the colon with a prominent 7.9 cm distal rectal sigmoid colon stool ball. Associated distal rectal sigmoid colon wall thickening with surrounding infiltration suggesting stercoral colitis. PELVIS: Appendix: No findings to suggest acute appendicitis. Bladder: Partially contracted with nonspecific wall thickening. No stones. Reproductive: Atrophic uterus with calcification, likely fibroid. Ovaries not well characterized. ABDOMEN and PELVIS: Intraperitoneal space: No free air. No free fluid. Bones/joints: No acute fracture. Soft tissues: Unremarkable. Vasculature: Unremarkable. No abdominal aortic aneurysm. Lymph nodes: Unremarkable. No enlarged lymph nodes. IMPRESSION: Abundant stool throughout the colon with a prominent 7.9 cm distal rectal sigmoid colon stool ball. Associated distal rectal sigmoid colon wall thickening with surrounding infiltration suggesting stercoral colitis. Sigmoid colon diverticulosis without evidence for acute diverticulitis. Otherwise no change. Electronically signed by: Rickie Arzola M.D. 11/01/24 22:57 PM
--- NOTE | 2024-11-01 23:01 | XRay Report ---
Exam(s): XR KUB EXAM: XR Abdomen, 4 Views CLINICAL HISTORY: abd pain; constipation. TECHNIQUE: Frontal view of the abdomen/pelvis with upright view of the abdomen and one or more additional views. COMPARISON: No relevant prior studies available. FINDINGS: Abundant stool throughout the colon to the rectum consistent with constipation. Bowel gas pattern otherwise unremarkable. Pelvic probable vascular calcification. Degenerative changes lumbar spine and hips. IMPRESSION: Abundant stool consistent with constipation. Electronically signed by: Rickie Arzola M.D. 11/01/24 23:00 PM
[2024-11-01] MEDS: MoRPHine SULFATE 4 MG/ML 1 ML CARP\\VIAL IV STA (23:23)
--- OUTSIDE RECORDS SUMMARY | 2024-11-02 02:31 | External Medical Summary | Summary of Care ---
Author Name Unknown Organization [facility] Address [address] [facility] [place] [address] Phone [phone] Care Team Providers Care Systems Eng Name Role Phone Reshma Neumann DO Primary Care Provider Reason for Visit * Reason Onset Date Comments Medication Refill 10/04/2024 Encounter Details Date Type Department Care Team (Late st Contact Info) Description 10/04/2024 Refill Family Medicine [address] [place] [address] [address]hma [address] [address] Mixed dyslipidemia Allergies Active Allergy Reactions Criticality Noted Date Comments Lisinopril Cough Low 11/16/2016 documented as of this encounter (statuses as of 10/04/2024) Medications ASPIRIN EC 81 MG PO TBECIndications: Metabolic syndrome Take one pill daily 0 0 9 Active Nystatin 505963 UNIT/GM External CreamIndications :Intertrigo Apply topically to affected area 2 times a day. To affacted area for two weeks. 30 g 2 3 Active Melatonin 10 MG Oral Capsule Take 1 Capsule by mouth at bedtime. Active Losartan Potassium 25 MG Oral Tablet (Cozaar) Take 1 Tablet by mouth in the morning. 90 Tablet 1 4 Active Donepezil HCl 10 MG Oral Tablet (Aricept) TAKE ONE TABLET BY MOUTH EVERY MORNING WITH BREAKFAST 90 Tablet 3 4 Active Memantine HCl 10 MG Oral Tablet (Namenda)Indicat ions:Memory loss TAKE 1 TABLET TWICE A DAY WITH MORNING AND EVENING MEALS 180 Tablet 3 4 Active Potassium Chloride 10 MEQ Oral Packet Take 2 packets by mouth daily. 60 Each 5 5 Active Atorvastatin Calcium 40 MG Oral Tablet (Lipitor)Indicat ions:Mixed dyslipidemia Take 1 Tablet by mouth daily. 90 Tablet 2 5 Active Atorvastatin Calcium 20 MG Oral Tablet (Lipitor)Indicat ions:Mixed dyslipidemia Take 1 Tablet by mouth in the morning. In the morning.. 90 Tablet 3 4 10/05/19 25 Discontin ued(Refil l) Atorvastatin Calcium 20 MG Oral Tablet (Lipitor)Indicat ions:Mixed dyslipidemia Take 2 Tablets by mouth in the morning. In the morning.. 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 07/22/2018 Essential hypertension with goal blood pressure less than 140/90 07/08/2016 Mixed dyslipidemia 07/08/2016 documented as of this encounter (statuses as of 10/04/2024) Resolved Problems Problem Noted Date Diagnosed Date Resolved Date Type 2 diabetes mellitus wit h chronic kidney disease 01/31/2019 01/31/2019 Hypertensive kidney disease with chronic kidney disease stage III 01/19/2019 09/05/2020 Overview: Per CKD protocol Kidney disease, chronic, sta ge III (GFR 30-59 ml/min) 08/08/2018 02/02/2019 Overview: Per CKD protocol #1 Elevated LFTs 07/07/2015 07/07/2015 Primary osteoarthritis of both knees 02/14/2015 07/20/2017 Advanced directives, counseling/discussion 02/06/2015 07/20/2017 Overview (08/27/2005): No, Advance Directive brochure given to patient at prior appointment. Vaginal prolapse 10/25/2014 07/20/2017 HTN, goal below 140/90 04/17/201307/08 Obesity, Class III, BMI 40-4 9.9 (morbid obesity) 07/30/2011 01/30/2018 Mixed incontinence urge and stress (male)(female) 12/17/2010 07/22/2018 Obesity, morbid (more than 1 00 lbs over ideal weight or BMI > 40) 01/07/2010 07/30/2011 Overview (10/14/2015): Per Obesity Protocol, #19 ICD-10 update of inactive term Dyslipidemia, goal LDL below 130 10/25/2009 07/08/2016 HTN, goal below 130/80 10/25/200904/17 Dyslipidemia, goal to be determined 07/04/2009 10/25/2009 Overview (07/04/2009): Per Lipid Taxonomy. Impaired fasting glucose 08/05/2007 FX LATERAL MALLEOLUS-CL 09/29/200501/2008 Calculus of gallbladder with out mention of cholecystitis or obstruction 09/05/2003 04/10/2004 HTN, goal below 140/90 08/11/199910/25 FEM STRESS INCONTINENCE 06/26 Prolapse of vaginal reyes Overview (10/29/2015): ICD-10 update of inactive term Dyslipidemia, goal LDL below 160 07/04/2009 Overview (07/04/2009): Per Lipid Taxonomy. LOC OSTEOARTH NOS-L-LEG 03/2016 Metabolic syndrome 8 Metabolic syndrome 7 Glucose intolerance (impaire d glucose tolerance) 01/09/2013 Type 2 diabetes mellitus wit h hemoglobin A1c goal of less than 7.0% 07/25/2018 documented as of this encounter (statuses as of 10/04/2024) Immunizations Name Administration Dates Next Due PPD 07/11/2001,08/28/1998 Pneumococcal Conjugate Vacc, 13 Valent (Prevnar) 10/22/2016 Pneumococcal Polysaccharide PPV23 (Pneumovax) Seasonal Influenza, PF, 6 M & above, IM , (FluLaval or Fluzone) 07/22/2018 TB Yennifer Test 08/11/1994 TD - Tetanus/Diptheria (ADULT) 07/26/2005 documented as of this encounter Social History Tobacco Use Types Packs/Day Years Used Date Smoking Tobacco: Never Smokeless Tobacco: Never Alcohol Use Standard Drinks/Week Comments Yes 0 (1 standard drink = 0.6 oz pur e alcohol) beer rarely PHQ-2 Answer Date Recorded PHQ-2 Score 0 08/08/2019 Hunger Vital Sign Answer Date Recorded Worried About Running Out of Food in the Last Ye ar Never true 08/08/2019 Ran Out of Food in the Last Year Never true 08/08/2019 Comments No Sex and Gender Information Value Date Recorded Sex Assigned at Not on file Legal Sex Female 5:58 AM EST Gender Identity Not on file Sexual Orientation Not on file 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 Left message on the answering machine requesting callback regarding Atorvastatin. PCP changed strength from 20mg to 40mg Patient is to take 1 tablet ONCE daily. Advised patient to please call [phone]. Please transfer her back to myself. If I'm not available, transfer to next available [facility]. Thank you, Alban Olmos, PharmD Clinical Pharmacist [facility] ([facility]) 10/04/24 4:13 PM [phone] * Telephone Encounter - Kip Kenny MD - 10/04/2024 3:36 PM EDT Signed Prescriptions: Disp Refills Atorvastatin Calcium 40 MG Oral Tablet (Li*90 Tab*2 Sig: Take 1 Tablet by mouth daily.Authorizing Provider: KIP KENNY * Addendum Note - Alban Olmos [facility] - 10/04/2024 3:35 PM EDTAddended by: ALBAN OLMOS on: 10/04/2024 03:35 PM Modules accepted: Orders * Telephone Encounter - Alban Olmos [facility] - 10/04/2024 3:34 PM EDT Rx pended for 40mg - insurance will not pay for two 20mg tablets daily. Pending Prescriptions: Disp Refills Atorvastatin Calcium 40 MG Oral Tablet (L*90 Tab*2 Sig: Take 1 Tablet by mouth daily. Signed Prescriptions: Disp Refills Atorvastatin Calcium 20 MG Oral Tablet (Li*90 Tab*2 Sig: Take 2 Tablets by mouth in the morning. In the morning.. Authorizing Provider: KIP KENNY Please approve if appropriate Thank you, Alban Olmos, MajoD Clinical Pharmacist [facility] ([facility]) 10/04/24 3:34 PM [phone] * Telephone Encounter - Malathi Humphrey printing assistant - 10/04/2024 3:27 PM EDT If supposed to be two 20 mg tablets per day Pharmacy requesting a script for Atorvastatin Calcium 40 MG Oral Tablet (Lipitor) Pharmacy is calling because pt's prescription for Atorvastatin Calcium 20 MG Oral Tablet (Lipitor) was sent with unclear directions stating "Take 2 Tablets by mouth in the morning ". Please clarify the directions for this medication and send a new prescription to [facility], [address] [place] . Thank you, Malathi Humphrey Senior Clinical Data Manager I [facility] ([facility]) 10/04/2024,3:27 PM * Telephone Encounter - Kip Kenny MD - 10/04/2024 1:42 PM EDT Signed Prescriptions: Disp Refills Atorvastatin Calcium 20 MG Oral Tablet (Li*90 Tab*2 Sig: Take 2 Tablets by mouth in the morning. In the morning.. Authorizing Provider: KIP KENNY * Telephone Encounter - Alta Whipple CMA - 10/04/2024 1:01 PM EDTPending Prescriptions: Disp Refills Atorvastatin Calcium 20 MG Oral Tablet (Li*90 Tab*2 Sig: Take 2 Tablets by mouth in the morning. In the morning.. * Telephone Encounter - Teri Choi OSA - 10/04/2024 11:37 AM EDT Did you pend patient's preferred pharmacy and medication before forwarding?yes Pharmacy: [facility], [address] [place] Pending Prescriptions: Disp Refills Atorvastatin Calcium 20 MG Oral Tablet (L*30 Tab* Sig: Take 2 Tablets by mouth in the morning. In the morning.. Last Visit: 08/29/2024 (in office), 11/29/2020 (telemedicine) Next Visit: 03/28/2025 If no future appointments scheduled, and last appointment is greater than a year ago, please schedule patient for a follow-up appointment Last date the medication was ordered: 06/16/2024 Is this request for a controlled substance?No Urine Drug Screen:No results found for this or any previous visit. Patient Phone Numbers Labs: Lab Results Component Value Date/Time CREAT 0.9 08/29/2024 02:46 PM CREAT 1.0 03/11/2020 09:30 AM POTASSIUM 3.0 (L) 08/29/2024 02:46 PM POTASSIUM 4.1 03/11/2020 09:30 AM TSH 1.86 07/20/2017 09:49 AM LDL 72 07/02/2023 11:16 AM LDL 80 02/07/2020 11:17 AM LDL NOT APPLICABLE 02/07/2020 11:17 AM LDLCALC 98 2010 09:08 AM ALT 38 (H) 07/02/2023 11:16 AM ALT 37 (H) 02/07/2020 11:17 AM HGBA1C 5.6 07/02/2023 11:16 AM HGBA1C 6.0 (H) 02/07/2020 11:17 AM documented in this encounter Plan of Treatment Upcoming Encounters Date Type Department Care Team (Late st Contact Info) Description 03/28/2025 2:30 PM EDT Office Visit Family Medicine [address] [place] [address] Reshma Neumann [address] [place] [address] Health Maintenance Due Date Last Done Comments Zoster Vaccines (1 of 2) 1999 DTap/Tdap Vaccines (1 - Tdap) 07/27/2005 07/26/2005, 07/26/2005 FOBT ANNUALLY,AGES 18-90 12/20/2010 12/20/2009, 09/24 Adult Wellness Visit 2015 Depression Screening 08/08/2020 08/08/2019 DXA Scan 11/12/2023 11/11/2016 COVID-19 Vaccine ( season) 2024 Influenza Vaccine (FLU shot) (#1) 2024 07/22/2018 CKD HGB USE SMARTSET 09180 07/02/202407/02, 04/22/2022, 04/22/2022, Additional history exists CKD PHOS USE SMARTSET 87141 07/02/202402/2023, 04/22/2022, 04/08/2021, Additional history exists Fecal Occult Blood Test Discontinued 12/20/2009, 10/21 Pneumococcal Vaccine: 50+ Years Completed 01/20/2018, 10/22/2016 Cologuard Discontinued 09/02/2019, 09/2019, 08/08/2019 Colorectal Cancer Screening Discontinued Albumin/Creatinine Ratio Discontinued 024, 10/28/2022, 10/07/2021, Additional history exists Colonoscopy Discontinued HPV (Gardasil) Vaccine Aged Out No lo nger eligible based on patient's age to complete this topic Hepatitis B Vaccine Aged Out No longe r eligible based on patient's age to complete this topic MENINGOCOCCAL (MENACTRA/MENVEO) Aged Out No longer eligible based on patient's age to complete this topic Meningitis B Vaccine (Bexsero/Trumemba) Aged Out No longer eligible based on patient's age to complete this topic Sigmoidoscopy Discontinued documented as of this encounter Medical Devices Not on filedocumented as of this encounter Visit Diagnoses Diagnosis Mixed dyslipidemia Mixed hyperlipidemia documented in this encounter Care Teams Systems Eng Relationship Specialty Start Date End Date Reshma Neumann DO [address] [place] [address] [place] [address] PCP - General Internal Medicine 01/31/19 documented as of this encounter
--- OUTSIDE RECORDS SUMMARY | 2024-11-02 02:31 | External Medical Summary | Summary of Care ---
Author Name Unknown Organization [facility] Address [address] [facility] [place] [address] Phone [phone] Care Team Providers Care Vascular Tech Name Role Phone Reshma Neumann DO Primary Care Provider [phone] Reason for Visit * Reason Onset Date Comments Medication Refill 10/04/2024 Encounter Details Date Type Department Care Team (Late st Contact Info) Description 10/04/2024 Refill Family Medicine [address] [place] [address] Reshma Neumann [address] [address] Mixed dyslipidemia Allergies Active Allergy Reactions Criticality Noted Date Comments Lisinopril Cough Low 11/16/2016 documented as of this encounter (statuses as of 10/04/2024) Medications ASPIRIN EC 81 MG PO TBECIndications: Metabolic syndrome Take one pill daily 0 0 9 Active Nystatin 611274 UNIT/GM External CreamIndications :Intertrigo Apply topically to [...] 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 Left message on the answering machine requesting callback regarding Atorvastatin. PCP changed strength from 20mg to 40mg Patient is to take 1 tablet ONCE daily. Advised patient to please call [phone]. Please transfer her back to myself. If I'm not available, transfer to next available [facility]. Thank you, Alban Olmos, PharmD Clinical Pharmacist [facility] ([facility]) 10/04/24 4:13 PM [phone] * Telephone Encounter - Kip Kenny MD - 10/04/2024 3:36 PM EDT Signed Prescriptions: Disp Refills Atorvastatin Calcium 40 MG Oral Tablet (Li*90 Tab*2 Sig: Take 1 Tablet by mouth daily.Authorizing Provider: KIP KENNY * Addendum Note - Alban Olmos [facility] - 10/04/2024 3:35 PM EDTAddended by: ALBAN OLMOS on: 10/04/2024 03:35 PM Modules accepted: Orders * Telephone Encounter - Alban Olmos [facility] - 10/04/2024 3:34 PM EDT Rx pended [...] Clinical Pharmacy Services ([facility]) 10/04/24 3:34 PM [phone] * Telephone Encounter - Malathi Humphrey winery worker - 10/04/2024 3:27 PM EDT If supposed [...] medication and send a new prescription to [facility], [address] [place] . Thank you, Malathi Humphrey Pig Farmer I [facility] ([facility]) 10/04/2024,3:27 [...] pharmacy and medication before forwarding?yes Pharmacy: [facility], [address] [place] Pending Prescriptions: Disp Refills [...] 2:30 PM EDT Office Visit Family Medicine [address] [place] [address] Reshma Neumann [address] [place] [address] Health Maintenance Due Date Last Done Comments Zoster Vaccines (1 of 2) 1999 DTap/Tdap Vaccines (1 - Tdap) 07/27/2005 07/26/2005, 07/26/2005 FOBT ANNUALLY,AGES 18-90 12/20/2010 12/20/2009, 09/24 Adult Wellness Visit 2015 Depression Screening 08/08/2020 08/08/2019 DXA Scan 11/12/2023 11/11/2016 COVID-19 Vaccine ( season) 2024 Influenza Vaccine (FLU shot) (#1) 2024 07/22/2018 CKD HGB USE SMARTSET 26592 07/02/202407/02, 04/22/2022, 04/22/2022, Additional history exists CKD PHOS USE SMARTSET 56604 07/02/202402/2023, 04/22/2022, 04/08/2021, Additional history exists Fecal [...] hyperlipidemia documented in this encounter Care Teams Vascular Tech Relationship Specialty Start Date End Date Reshma Neumann DO [address] [place] [address] [place] [address] PCP - General Internal Medicine 01/31/19 documented as of this encounter
--- OUTSIDE RECORDS SUMMARY | 2024-11-02 02:31 | External Medical Summary | Summary of Care ---
Author Name Unknown Organization [facility] Address [address] [facility] [place] [address] Phone [phone] Care Team Providers Care Applications Sales Representative Name Role Phone Reshma Neumann DO Primary Care Provider [phone] Reason for Visit * Reason Onset Date Comments Medication Refill 10/04/2024 Encounter Details Date Type Department Care Team (Late st Contact Info) Description 10/04/2024 Refill Family Medicine [address] [place] [address] Reshma [address] [address] Mixed dyslipidemia Allergies Active Allergy Reactions Criticality Noted Date Comments Lisinopril Cough Low 11/16/2016 documented as of this encounter (statuses as of 10/05/2024) Medications ASPIRIN EC 81 MG PO TBECIndications: Metabolic syndrome Take one pill daily 0 0 9 Active Nystatin 039316 UNIT/GM External CreamIndications :Intertrigo Apply topically to [...] as of this encounter (statuses as of 10/05/2024) Active Problems Problem Noted Date Diagnosed Date [...] as of this encounter (statuses as of 10/05/2024) Resolved Problems Problem Noted Date Diagnosed Date [...] as of this encounter (statuses as of 10/05/2024) Immunizations Name Administration Dates Next Due PPD [...] 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 He verbalized understanding and stated the pharmacy already contacted him that the medication was ready and he will be picking it up. Thanks, Leah Abarca, PharmD Clinical Pharmacist [facility] ([facility]) [phone] 10/05/2024 11:13 AM * Telephone Encounter - Miroslava Armijo CPhT - 10/05/2024 11:07 AM EDT Patient's calling to return cb for [facility] regarding pt's Atorvastatin Calcium. Warm transferred to [facility] for further assistance. Thank you, Miroslava Armijo Security Solutions Architect II [facility] Clinical Pharmacy Services ([facility]) 10/05/2024, 11:07 AM * Telephone Encounter - Alban Olmos [facility] - 10/04/2024 4:13 PM EDT Unable to reach patient at this time. Left message on the answering machine requesting callback regarding Atorvastatin. PCP changed strength from 20mg to 40mg Patient is to take 1 tablet ONCE daily. Advised patient to please call [phone]. Please transfer her back to myself. If I'm not available, transfer to next available [facility]. Thank you, Alban Olmos, PharmD Clinical Pharmacist [facility] Clinical Pharmacy Services ([facility]) 10/04/24 4:13 PM [phone] * Telephone Encounter - Kip Kenny MD - 10/04/2024 3:36 PM EDT Signed Prescriptions: Disp Refills Atorvastatin Calcium 40 MG Oral Tablet (Li*90 Tab*2 Sig: Take 1 Tablet by mouth daily.Authorizing Provider: KIP KENNY * Addendum Note - Alban Olmos [facility] - 10/04/2024 3:35 PM EDTAddended by: ALBAN OLMOS on: 10/04/2024 03:35 PM Modules accepted: Orders * Telephone Encounter - Alban Olmos [facility] - 10/04/2024 3:34 PM EDT Rx pended [...] approve if appropriate Thank you, Alban Olmos, PharmD Clinical Pharmacist [facility] ([facility]) 10/04/24 3:34 PM [phone] * Telephone Encounter - Malathi Humphrey PHARM Tech - 10/04/2024 3:27 PM EDT If supposed [...] medication and send a new prescription to [facility], [address] [place] . Thank you, Malathi Humphrey Hot Tamale Man I [facility] ([facility]) 10/04/2024,3:27 [...] preferred pharmacy and medication before forwarding?yes [facility], [address] [place] Pending Prescriptions: Disp Refills [...] 2:30 PM EDT Office Visit Family Medicine [address] [address] [place] [address] Health Maintenance Due Date Last Done Comments Zoster Vaccines (1 of 2) 1999 DTap/Tdap Vaccines (1 - Tdap) 07/27/2005 07/26/2005, 07/26/2005 FOBT ANNUALLY,AGES 18-90 12/20/2010 12/20/2009, 09/24 Adult Wellness Visit 2015 Depression Screening 08/08/2020 08/08/2019 DXA Scan 11/12/2023 11/11/2016 COVID-19 Vaccine ( - season) 2024 Influenza Vaccine (FLU shot) (#1) 2024 07/22/2018 CKD HGB USE SMARTSET 02883 07/02/202407/02, 04/22/2022, 04/22/2022, Additional history exists CKD PHOS USE SMARTSET 17482 07/02/202402/2023, 04/22/2022, 04/08/2021, Additional history exists Fecal [...] hyperlipidemia documented in this encounter Care Teams Applications Sales Representative Relationship Specialty Start Date End Date Reshma Neumann DO [address] [place] [address] [place] [address] PCP - General Internal Medicine 01/31/19 documented as of this encounter
--- OUTSIDE RECORDS SUMMARY | 2024-11-02 02:31 | External Medical Summary | Summary of Care ---
Author Name Unknown Organization [facility] Address [address] [facility] [place] [address] Phone [phone] Care Team Providers Care Asphalt Paver Operator Name Role Phone Reshma Neumann DO Primary Care Provider + [phone] Reason for Visit * Reason Onset Date Comments Test Results 08/30/2024 Encounter Details Date Type Department Care Team (Late st Contact Info) Description 08/30/2024 Telephone Family Medicine [address] [place] [address] Reshma Neumann DO [address] [place], [place] [address] [address] Test Results Allergies Active Allergy Reactions Criticality Noted Date Comments Lisinopril Cough Low 11/16/2016 documented as of this encounter (statuses as of 08/31/2024) Medications ASPIRIN EC 81 MG PO TBECIndications: Metabolic syndrome Take one pill daily 0 0 9 Active Nystatin 568779 UNIT/GM External CreamIndications :Intertrigo Apply topically to [...] EVENING MEALS 180 Tablet 3 4 Active Atorvastatin Calcium 20 MG Oral Tablet (Lipitor)Indicat ions:Mixed dyslipidemia Take 1 Tablet by mouth in the morning. In the morning.. 90 Tablet 3 4 Active Additional Information Patient taking differently: 40 mgOral Daily(AM), In the morning., Reported on 08/29/2024 Potassium Chloride 10 MEQ Oral Packet Take 2 packets by mouth daily. 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 07/22/2018 Essential hypertension with goal blood pressure less than 140/90 07/08/2016 Mixed dyslipidemia 07/08/2016 documented as of this encounter (statuses as of 08/31/2024) Resolved Problems Problem Noted Date Diagnosed Date [...] as of this encounter (statuses as of 08/31/2024) Immunizations Name Administration Dates Next Due Pneumococcal Conjugate Vacc, 13 Valent (Prevnar) 10/22/2016 Pneumococcal Polysaccharide PPV23 (Pneumovax) Seasonal Influenza, PF, 6 M & above, IM , (FluLaval or Fluzone) 07/22/2018 TD - Tetanus/Diptheria (ADULT) 07/26/2005 documented as [...] 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 Son states pt probably will not be able to swallow pill, asking to try powder please send to [facility] pharmacy. * Telephone Encounter - Reshma Neumann DO - 08/30/2024 8:52 AM EST Please call pt's son (POA) as pt has dementia. Her kidney function looks good. Magnesium is normal. Potassium is low. I would like her to start a potassium pill but they are large. Will she be able to swallow this? There is a powder we can use but it tastes bad. Let me know what he wants her to try and I will send the script. documented in this encounter Plan of Treatment Upcoming Encounters Date Type Department Care Team (Late st Contact Info) Description 09/08/2024 8:00 AM EST Office Visit Neurology [place] [address] [facility] [place] [address] Daniel Srinivasan, [address] [facility] [place] [address] 03/28/2025 2:30 PM EDT Office Visit Family Medicine [address] [place] [phone] Reshma Neumann DO [address] [place] [address] [place] [address] Health Maintenance Due Date Last Done Comments Zoster Vaccines (1 of 2) 1999 DTap/Tdap Vaccines (1 - Tdap) 07/27/2005 07/26/2005, 07/26/2005 FOBT ANNUALLY,AGES 18-90 12/20/2010 12/20/2009, 09/24 Adult Wellness Visit 2015 Depression Screening 08/08/2020 08/08/2019 DXA Scan 11/12/2023 11/11/2016 COVID-19 Vaccine ( season) 2024 Influenza Vaccine (FLU shot) (#1) 2024 07/22/2018 CKD HGB USE SMARTSET 29732 07/02/202407/02, 04/22/2022, 04/22/2022, Additional history exists CKD PHOS USE SMARTSET 46267 07/02/2024 1202/2023, 04/22/2022, 04/08/2021, Additional history exists HbA1c 07/02/2024 07/02/2023, 03/27, 04/08/2021, Additional history exists Albumin/Creatinine Ratio 12/30/2024 024, 10/28/2022, 10/07/2021, Additional history exists GFR 02/26/2025 08/29/2024, 01/2024, 07/02/2023, Additional history exists Fecal Occult Blood Test Discontinued 12/20/2009, 10/21 Pneumococcal Vaccine: 50+ Years Completed 01/20/2018, 10/22/2016 Cologuard Discontinued 09/02/2019, 09/2019, 08/08/2019 Colorectal Cancer Screening Discontinued Colonoscopy Discontinued HPV (Gardasil) Vaccine Aged Out [...] Not on filedocumented as of this encounter Care Teams Asphalt Paver Operator Relationship Specialty Start Date End Date Reshma Neumann DO [address] [place] [address] [place] [phone] PCP - General Internal Medicine 01/31/19 documented as of this encounter
--- OUTSIDE RECORDS SUMMARY | 2024-11-02 02:31 | External Medical Summary | Summary of Care ---
Author Name Unknown Organization [facility] Address [address] [facility] [place] [address] Phone [phone] Care Team Providers Care Coin Machine Collector Supervisor Name Role Phone Reshma Neumann DO Primary Care Provider Reason for Visit * Reason Onset Date Comments Medication Refill 10/04/2024 Encounter Details Date Type Department Care Team (Late st Contact Info) Description 10/04/2024 Refill Family Medicine [address] [place] [address] Reshma Neumann [address] [address] Mixed dyslipidemia Allergies Active Allergy Reactions Criticality Noted Date Comments Lisinopril Cough Low 11/16/2016 documented as of this encounter (statuses as of 10/05/2024) Medications ASPIRIN EC 81 MG PO TBECIndications: Metabolic syndrome Take one pill daily 0 0 9 Active Nystatin 711886 UNIT/GM External CreamIndications :Intertrigo Apply topically to [...] 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 Warm transferred to [facility] for further assistance. Thank you, Miroslava Armijo Foreign Car Mechanic II [facility] ([facility]) 10/05/2024, 11:07 AM * Telephone Encounter - Alban Olmos [facility] - 10/04/2024 4:13 PM EDT Unable to reach patient at this time. Left message on the answering machine requesting callback regarding Atorvastatin. PCP changed strength from 20mg to 40mg Patient is to take 1 tablet ONCE daily. Advised patient to please call [phone]. Please transfer her back to myself. If I'm not available, transfer to next available [facility]. Thank you, Alban Olmos, PharmD Clinical Pharmacist [facility] Services ([facility]) 10/04/24 4:13 PM [phone] * Telephone Encounter - Kip Kenny MD - 10/04/2024 3:36 PM EDT Signed Prescriptions: Disp Refills Atorvastatin Calcium 40 MG Oral Tablet (Li*90 Tab*2 Sig: Take 1 Tablet by mouth daily.Authorizing Provider: KIP KENNY * Addendum Note - Alban Olmos [facility] - 10/04/2024 3:35 PM EDTAddended by: ALBAN OLMOS on: 10/04/2024 03:35 PM Modules accepted: Orders * Telephone Encounter - Alban Olmos [facility] - 10/04/2024 3:34 PM EDT Rx pended [...] KENNY Please approve if appropriate Thank you, Alabn Olmos, PharmD Clinical Pharmacist [facility] ([facility]) 10/04/24 3:34 PM [phone] * Telephone Encounter - Malathi Humphrey PHARM [...] medication and send a new prescription to [facility], [address] [place] . Thank you, Malathi Humphrey Exchange Architect I [facility] ([facility]) 10/04/2024,3:27 [...] preferred pharmacy and medication before forwarding?yes [facility], [address] [place] Pending Prescriptions: Disp Refills [...] 2:30 PM EDT Office Visit Family Medicine [address] [phone] [place] [address] Health Maintenance Due Date Last Done Comments Zoster Vaccines (1 of 2) 1999 DTap/Tdap Vaccines (1 - Tdap) 07/27/2005 07/26/2005, 07/26/2005 FOBT ANNUALLY,AGES 18-90 12/20/2010 12/20/2009, 09/24 Adult Wellness Visit 2015 Depression Screening 08/08/2020 08/08/2019 DXA Scan 11/12/2023 11/11/2016 COVID-19 Vaccine ( - season) 2024 Influenza Vaccine (FLU shot) (#1) 2024 07/22/2018 CKD HGB USE SMARTSET 14298 07/02/202407/02, 04/22/2022, 04/22/2022, Additional history exists CKD PHOS USE SMARTSET 30347 07/02/202402/2023, 04/22/2022, 04/08/2021, Additional history exists Fecal [...] hyperlipidemia documented in this encounter Care Teams Coin Machine Collector Supervisor Relationship Specialty Start Date End Date Reshma Neumann DO [address] [place] [address] [place] [address] PCP - General Internal Medicine 01/31/19 documented as of this encounter
--- OUTSIDE RECORDS SUMMARY | 2024-11-02 02:31 | External Medical Summary | Summary of Care ---
Author Name Unknown Organization [facility] Address [address] [facility] [place] [address] Phone [phone] Care Team Providers Care Instructional Media Services Technician Name Role Phone Reshma Neumann DO Primary Care Provider + [phone] Reason for Visit * Reason Onset Date Comments Fax 08/30/2024 Encounter Details Date Type Department Care Team (Late st Contact Info) Description 08/30/2024 Telephone Family Medicine [address] [place] [address] Reshma Neumann DO [address] [place] [address] [place] [address] Fax Allergies Active Allergy Reactions Criticality Noted Date Comments Lisinopril Cough Low 11/16/2016 documented as of this encounter (statuses as of 08/30/2024) Medications ASPIRIN EC 81 MG PO TBECIndications: Metabolic syndrome Take one pill daily 0 0 9 Active Nystatin 383329 UNIT/GM External CreamIndications :Intertrigo Apply topically to [...] Daily(AM), In the morning., Reported on 08/29/2024 documented as of this encounter (statuses as of 08/30/2024) Active Problems Problem Noted Date Diagnosed Date [...] as of this encounter (statuses as of 08/30/2024) Resolved Problems Problem Noted Date Diagnosed Date [...] as of this encounter (statuses as of 08/30/2024) Immunizations Name Administration Dates Next Due Pneumococcal [...] 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 Fax confirmation success recd. * Telephone Encounter - Elsie Blanc OSA - 08/30/2024 10:33 AM EST Caller requesting the following information to be faxed: Name/Company of caller: [facility] Information requested to be faxed: Visit note/labs/weight within the last 6 months Fax number: [phone] Attention to Name/Company: [facility] Any additional information?: no documented in this encounter Plan of Treatment Upcoming Encounters Date Type Department Care Team (Late st Contact Info) Description 09/08/2024 8:00 AM EST Office Visit Neurology [facility] Bhatt [address] [place] [address] Daniel Srinivasan DO [address] [place] [address] 03/28/2025 2:30 PM EDT Office Visit Family Medicine [address] [place] [phone] [place] [address] Health Maintenance Due Date Last Done Comments Zoster Vaccines (1 of 2) 1999 DTap/Tdap Vaccines (1 - Tdap) 07/27/2005 07/26/2005, 07/26/2005 FOBT ANNUALLY,AGES 18-90 12/20/2010 12/20/2009, 09/24 Adult Wellness Visit 2015 Depression Screening 08/08/2020 08/08/2019 DXA Scan 11/12/2023 11/11/2016 COVID-19 Vaccine ( season) 2024 Influenza Vaccine (FLU shot) (#1) 2024 07/22/2018 CKD HGB USE SMARTSET 04517 07/02/202407/02, 04/22/2022, 04/22/2022, Additional history exists CKD PHOS USE SMARTSET 92780 07/02/202402/2023, 04/22/2022, 04/08/2021, Additional history exists HbA1c 07/02/2024 [...] filedocumented as of this encounter Care Teams Instructional Media Services Technician Relationship Specialty Start Date End Date Reshma Neumann DO [address] [place] [address] [place] [address] PCP - General Internal Medicine 01/31/19 documented as of this encounter
--- OUTSIDE RECORDS SUMMARY | 2024-11-02 02:31 | External Medical Summary | Summary of Care ---
Author Name Unknown Organization [facility] Address [address] [facility] [place] [address] Phone [phone] Care Team Providers Care Chicle Grinder Feeder Name Role Phone Reshma Neumann DO Primary Care Provider Reason for Visit * Reason Onset Date Comments Medication Refill 10/04/2024 Encounter Details Date Type Department Care Team (Late st Contact Info) Description 10/04/2024 Refill Family Medicine [address] [place] [address] [address]hma [address] [address] Mixed dyslipidemia Allergies Active Allergy Reactions Criticality Noted Date Comments Lisinopril Cough Low 11/16/2016 documented as of this encounter (statuses as of 10/04/2024) Medications ASPIRIN EC 81 MG PO TBECIndications: Metabolic syndrome Take one pill daily 0 0 9 Active Nystatin 043086 UNIT/GM External CreamIndications :Intertrigo Apply topically to [...] 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 Left message on the answering machine requesting callback regarding Atorvastatin. PCP changed strength from 20mg to 40mg Patient is to take 1 tablet ONCE daily. Advised patient to please call [phone]. Please transfer her back to myself. If I'm not available, transfer to next available [facility]. Thank you, Alban Olmos, PharmD Clinical Pharmacist [facility] ([facility]) 10/04/24 4:13 PM [phone] * Telephone Encounter - Kip Kenny MD - 10/04/2024 3:36 PM EDT Signed Prescriptions: Disp Refills Atorvastatin Calcium 40 MG Oral Tablet (Li*90 Tab*2 Sig: Take 1 Tablet by mouth daily.Authorizing Provider: KIP KENNY * Addendum Note - Alban Olmos [facility] - 10/04/2024 3:35 PM EDTAddended by: ALBAN OLMOS on: 10/04/2024 03:35 PM Modules accepted: Orders * Telephone Encounter - Alban Olmos [facility] - 10/04/2024 3:34 PM EDT [...] Clinical Pharmacy Services ([facility]) 10/04/24 3:34 PM [phone] * Telephone Encounter - Malathi Humphrey catering and events manager - 10/04/2024 3:27 PM EDT If supposed [...] medication and send a new prescription to [facility], [address] [place] . Thank you, Malathi Humphrey Desk Attendant I [facility] ([facility]) 10/04/2024,3:27 [...] pharmacy and medication before forwarding?yes Pharmacy: [facility], [address] [place] Pending Prescriptions: Disp Refills [...] 2:30 PM EDT Office Visit Family Medicine [address] [place] [address] Reshma Neumann [address] [place] [address] Health Maintenance Due Date Last Done Comments Zoster Vaccines (1 of 2) 1999 DTap/Tdap Vaccines (1 - Tdap) 07/27/2005 07/26/2005, 07/26/2005 FOBT ANNUALLY,AGES 18-90 12/20/2010 12/20/2009, 09/24 Adult Wellness Visit 2015 Depression Screening 08/08/2020 08/08/2019 DXA Scan 11/12/2023 11/11/2016 COVID-19 Vaccine ( season) 2024 Influenza Vaccine (FLU shot) (#1) 2024 07/22/2018 CKD HGB USE SMARTSET 94814 07/02/202407/02, 04/22/2022, 04/22/2022, Additional history exists CKD PHOS USE SMARTSET 05250 07/02/202402/2023, 04/22/2022, 04/08/2021, Additional history exists Fecal [...] hyperlipidemia documented in this encounter Care Teams Chicle Grinder Feeder Relationship Specialty Start Date End Date Reshma Neumann DO [address] [place] [address] [place] [address] PCP - General Internal Medicine 01/31/19 documented as of this encounter
--- OUTSIDE RECORDS SUMMARY | 2024-11-02 02:31 | External Medical Summary | Summary of Care ---
Author Name Unknown Organization [facility] Address [address] [facility] [place] [address] Phone [phone] Care Team Providers Care Liquid Sugar Fortifier Name Role Phone Reshma Neumann DO Primary Care Provider Reason for Visit * Reason Onset Date Comments Medication Refill 10/04/2024 Encounter Details Date Type Department Care Team (Late st Contact Info) Description 10/04/2024 Refill Family Medicine [address] [place] [address] Reshma Neumann [address] [address] Mixed dyslipidemia Allergies Active Allergy Reactions Criticality Noted Date Comments Lisinopril Cough Low 11/16/2016 documented as of this encounter (statuses as of 10/04/2024) Medications ASPIRIN EC 81 MG PO TBECIndications: Metabolic syndrome Take one pill daily 0 0 9 Active Nystatin 677603 UNIT/GM External CreamIndications :Intertrigo Apply topically to [...] 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 Left message on the answering machine requesting callback regarding Atorvastatin. PCP changed strength from 20mg to 40mg Patient is to take 1 tablet ONCE daily. Advised patient to please call [phone]. Please transfer her back to myself. If I'm not available, transfer to next available [facility]. Thank you, Alban Olmos, PharmD Clinical Pharmacist [facility] ([facility]) 10/04/24 4:13 PM [phone] * Telephone Encounter - Kip Kenny MD - 10/04/2024 3:36 PM EDT Signed Prescriptions: Disp Refills Atorvastatin Calcium 40 MG Oral Tablet (Li*90 Tab*2 Sig: Take 1 Tablet by mouth daily.Authorizing Provider: KIP KENNY * Addendum Note - Alban Olmos [facility] - 10/04/2024 3:35 PM EDTAddended by: ALBAN OLMOS on: 10/04/2024 03:35 PM Modules accepted: Orders * Telephone Encounter - Alban Olmos [facility] - 10/04/2024 3:34 PM EDT Rx pended [...] Clinical Pharmacy Services ([facility]) 10/04/24 3:34 PM [phone] * Telephone Encounter - Malathi Humphrey ring sewer - 10/04/2024 3:27 PM EDT If supposed [...] and send a new prescription to [facility], [address] [place] . Thank you, Malathi Humphrey Latcher I [facility] ([facility]) 10/04/2024,3:27 [...] pharmacy and medication before forwarding?yes Pharmacy: [facility], [address] [place] Pending Prescriptions: Disp Refills [...] 2:30 PM EDT Office Visit Family Medicine [address] [place] [address] [address]hma Neumann [address] [place] [address] Health Maintenance Due Date Last Done Comments Zoster Vaccines (1 of 2) 1999 DTap/Tdap Vaccines (1 - Tdap) 07/27/2005 07/26/2005, 07/26/2005 FOBT ANNUALLY,AGES 18-90 12/20/2010 12/20/2009, 09/24 Adult Wellness Visit 2015 Depression Screening 08/08/2020 08/08/2019 DXA Scan 11/12/2023 11/11/2016 COVID-19 Vaccine ( season) 2024 Influenza Vaccine (FLU shot) (#1) 2024 07/22/2018 CKD HGB USE SMARTSET 00389 07/02/202407/02, 04/22/2022, 04/22/2022, Additional history exists CKD PHOS USE SMARTSET 70699 07/02/202402/2023, 04/22/2022, 04/08/2021, Additional history exists Fecal [...] hyperlipidemia documented in this encounter Care Teams Liquid Sugar Fortifier Relationship Specialty Start Date End Date Reshma Neumann DO [address] [place] [address] [place] [address] PCP - General Internal Medicine 01/31/19 documented as of this encounter
--- OUTSIDE RECORDS SUMMARY | 2024-11-02 02:32 | External Medical Summary | Summary of Care ---
Author Name Unknown Organization [facility] Address [address] [facility] [address] Phone [phone] Care Team Providers Care Crosscutter Rolled Glass Name Role Phone Reshma Neumann DO Primary Care Provider + [phone] Reason for Referral * Ancillary Services (Within 10 days (routine)) - Authorized Specialty Diagnoses / Procedures Referred By Link espinoza Referred To Contact HOME CARE / Palliative Medicine Diagnoses Late onset Alzheimer's disease without behavioral disturbance (HCC) Reshma Neumann [address] [place] [address] Phone: tel: fax: Referral ID Status Reason Start Date Expiration Date Visits Requested Visits Authorized [id number] Authorized Ancillary Services Required 08/29/[phone] Question Answer Referral Priority Within 10 days (routine) Where should this appointment be scheduled? [facility] Reason for Visit * Reason Onset Date Comments Hospital Follow-Up Pt "blacked o ut twice this morning"; still noticing facial drooping. Hospital Follow-Up 08/29/2024 Encounter Details Date Type Department Care Team (Late st Contact Info) Description 08/29/2024 1:50 PM EST Office Visit Family Medicine [address] [place] [phone] Reshma Neumann [address] [place] [address] Hospital discharge follow-up*; History of TIA (transient ischemic attack); Late onset Alzheimer's disease without behavioral disturbance (HCC); Chronic kidney disease, stage 3a (HCC); Acute cystitis without hematuria; Electrolyte abnormality; Symptomatic care patient Allergies Active Allergy Reactions Criticality Noted Date Comments Lisinopril Cough Low 11/16/2016 documented as of this encounter (statuses as of 08/30/2024) Medications ASPIRIN EC 81 MG PO TBECIndications :Metabolic syndrome Take one pill daily 0 0 11/29/19 09 Active Nystatin 616363 UNIT/GM External CreamIndication s:Intertrigo Apply topically to affected area 2 times a day. To affacted area for two weeks. 30 g 2 09/04/19 23 Active Melatonin 10 MG Oral Capsule Take 1 Capsule by mouth at bedtime. Active Losartan Potassium 25 MG Oral Tablet (Cozaar) Take 1 Tablet by mouth in the morning. 90 Tablet 1 12/31/19 24 Active Donepezil HCl 10 MG Oral Tablet (Aricept) TAKE ONE TABLET BY MOUTH EVERY MORNING WITH BREAKFAST 90 Tablet 3 12/31/19 24 Active Memantine HCl 10 MG Oral Tablet (Namenda)Indica tions:Memory loss TAKE 1 TABLET TWICE A DAY WITH MORNING AND EVENING MEALS 180 Tablet 3 03/30/20 24 Active Atorvastatin Calcium 20 MG Oral Tablet (Lipitor)Indica tions:Mixed dyslipidemia Take 1 Tablet by mouth in the morning. In the morning.. 90 Tablet 3 06/16/20 24 Active Additional Information Patient taking differently: 40 mgOral Daily(AM), In the morning., Reported on 08/29/2024 hydroCHLOROthia zide 12.5 MG Oral Capsule TAKE ONE CAPSULE BY MOUTH EVERY MORNING 90 Capsule 2 11/09/19 24 025 Discontinued QUEtiapine Fumarate 50 MG Oral Tablet (SEROquel) Take 1 Tablet by mouth at bedtime. 90 Tablet 1 05/16/20 24 025 Discontinued documented as of this encounter (statuses as [...] Impaired fasting glucose 08/05/2007 FX LATERAL MALLEOLUS-CL 09/29/2005 0801/2008 Calculus of gallbladder with out mention of [...] 08/30/2024) Immunizations Name Administration Dates Next Due PPD [...] Industry Job Start Date Job End Date [employer] WORK[employer] Not on file Not on file Not on file documented as of this encounter Last Filed Vital Signs Vital Sign Reading Time Taken Comments Blood Pressure 118/72 08/29/2024 1:54 PM EST Pulse 63 08/29/2024 1:54 PM EST Temperature - - Respiratory Rate - - Oxygen Saturation 94% 08/29/2024 1:54 PM EST Inhaled Oxygen Concentration - - Weight 65.8 kg (145 lb) 08/29/2024 1:54 PM EST Height - - Body Mass Index 27.4 12/31/2023 2:28 PM EDT documented in this encounter Progress Notes * Reshma Neumann, DO - 08/29/2024 1:54 PM EST SUBJECTIVE: Janet Gorman is a 74 year old female. Chief Complaint Patient presents with Hospital Follow-Up Pt "blacked out twice this morning"; still noticing facial drooping. Hospital Follow-Up Recent Admission: Patient was recently admitted to [facility]. The date of discharge was 08/18/24. Discharge report receivedand reviewed. She was brought to the ER for evaluation of left facial droop. Stroke workup was negative but neurology recommended DAPT with ASA and Plavix x 3. She was also treated for a UTI. She is also felt to have progression of her Alzheimer's disease and palliative referral as an outpatient was recommended. Her lipitor dose was increased to 40 mg. HPI: Janet Gorman presents today with her family for HD follow up. They report she is compliant with taking her ASA and clopidogrel. They report she passed out twice this morning. She is not ambulating well. Her family notes that she is not eating well. She will eat and drink if assisted in doing so - does not eat independently. She finished the antibiotic for the urinary infection. She is having trouble getting up and down the stairs. She is very winded when walking up the stairs. Her family would like her to have a hospital bed downstairs. She does sleep on 2-3 pillows. She has lost considerable weight recently due to her poor intake - about 40# in the past year. Gait is unstable. Patient Active Problem List Diagnosis Essential hypertension with goal blood pressure less than 140/90 Mixed dyslipidemia Late onset Alzheimer's disease without behavioral disturbance (HCC) Prediabetes Hepatic steatosis Status post total bilateral knee replacement Hypertensive kidney disease with stage 3a chronic kidney disease Chronic kidney disease, stage 3a (HCC) Current Outpatient Medications Medication Sig Dispense Refill ASPIRIN EC 81 MG PO TBEC Take one pill daily 0 0 Nystatin 303436 UNIT/GM External Cream Apply topically to affected area 2 times a day. To affacted area for two weeks. 30 g 2 Melatonin 10 MG Oral Capsule Take 1 Capsule by mouth at bedtime. hydroCHLOROthiazide 12.5 MG Oral Capsule TAKE ONE CAPSULE BY MOUTH EVERY MORNING 90 Capsule 2 Losartan Potassium 25 MG Oral Tablet (Cozaar) Take 1 Tablet by mouth in the morning. 90 Tablet 1 Donepezil HCl 10 MG Oral Tablet (Aricept) TAKE ONE TABLET BY MOUTH EVERY MORNING WITH BREAKFAST 90 Tablet 3 Memantine HCl 10 MG Oral Tablet (Namenda) TAKE 1 TABLET TWICE A DAY WITH MORNING AND EVENING MEALS 180 Tablet 3 Atorvastatin Calcium 20 MG Oral Tablet (Lipitor) Take 1 Tablet by mouth in the morning. In the morning.. (Patient taking differently: Take 2 Tablets by mouth in the morning. In the morning..) 90 Tablet 3 No current facility-administered medications for this visit. Current and discharge medications have been reconciled. Review of patient's allergies indicates: Allergen Reactions Lisinopril Cough OBJECTIVE: BP 118/72 | Pulse 63 | Wt 145 lb (65.8 kg) | LMP 01/27/2000 | SpO2 94% | BMI 27.40 kg/m² | BSA 1.68 m² Review Of Systems: Skin: negative Eyes: negative Ears/Nose/Throat: negative Respiratory: family notes shortness of breath with exertion Cardiovascular: family reports episodes of blacking out Gastrointestinal: small pasty bowel movements, poor PO intake Genitourinary: negative Musculoskeletal: negative Neurologic: intermittent left facial droop Psychiatric: negative Hematologic/Lymphatic/Immunologic: negative Endocrine: negative PHYSICAL EXAM: General: alert, healthy, no distress, well nourished, and well developed Neck: supple, no adenopathy, thyroid normal size, non-tender, without nodularity Heart: regular rate & rhythm and no murmur Lungs: chest symmetric with normal AP diameter, no chest deformities noted, normal respiratory rateand rhythm, lungs clear to auscultation Abdomen: abdomen soft and non-tender Extremities: no joint deformities, effusion, or inflammation, no edema Neuro Exam: awake and alert, follows simple commands, cannot identify her son in the room Skin: skin color, texture, turgor are normal, no rashes or significant lesions ASSESSMENT/PLAN: Hospital discharge follow-up (Primary) - DISCH MED RECON CUR MED LIS History of TIA (transient ischemic attack) Late onset Alzheimer's disease without behavioral disturbance (HCC) - HOSPICE REFERRAL OP Chronic kidney disease, stage 3a (HCC) Acute cystitis without hematuria - she has completed her course of antibiotics. Electrolyte abnormality - BASIC METABOLIC PANEL; Future; Expected date: 08/29/2024 - MAGNESIUM; Future; Expected date: 08/29/2024 Symptomatic care patient After discussion with patient's family, will enroll her in hospice. Her weight loss, poor PO intake, increased dependence for ADLs shows progression of her disease and I think a 6 month life expectancy is reasonable at this time. I question if her spells of "blacking out" might be related a cardiacetiology, but will not evaluate further given her hospice referral. Family is in agreement. Will schedule 6 month return in the event that she does better than expected. Follow-up: Return in about 6 months (around 02/26/2025). | Check-out note: Labs today I spent a total of 40-54 minutes (exact time 52 mins) minutes on the date of service in preparation, delivery, and documentation of the care provided to Janet Gorman excluding any time spent in performance of separately billed services. Reshma Neumann DO documented in this encounter Nursing Notes * Mari Moulton RN - 08/30/2024 8:45 AM EST I sent referral to [facility] documented in this encounter Plan of Treatment Upcoming Encounters Date Type Department Care Team (Late st Contact Info) Description 09/08/2024 8:00 AM EST Office Visit Neurology Poppy Ya[address]ez [place] [address] [place], [place] [address] Daniel Srinivasan DO [address] [place] [address] 03/28/2025 2:30 PM EDT Office Visit Family Medicine [address] [place] [phone] Reshma Neumann, [address] [facility] [place] [address] Scheduled Referrals Name Type Priority Associated Diagnoses Orde r Schedule HOSPICE REFERRAL OP Referral Within 10 da ys (routine) Late onset Alzheimer's disease without behavioral disturbance (HCC) Ordered: 08/29/2024 Health Maintenance Due Date Last Done Comments Zoster Vaccines (1 of 2) 1999 DTap/Tdap Vaccines (1 - Tdap) 07/27/2005 07/26/2005, 07/26/2005 FOBT ANNUALLY,AGES 18-90 12/20/2010 12/20/2009, 09/24 Adult Wellness Visit 2015 Depression Screening 08/08/2020 08/08/2019 DXA Scan 11/12/2023 11/11/2016 COVID-19 Vaccine ( season) 2024 Influenza Vaccine (FLU shot) (#1) 2024 07/22/2018 CKD HGB USE SMARTSET 10199 07/02/202407/02, 04/22/2022, 04/22/2022, Additional history exists CKD PHOS USE SMARTSET 08267 07/02/202402/2023, 04/22/2022, 04/08/2021, Additional history exists HbA1c [...] Not on filedocumented as of this encounter Results * MAGNESIUM (08/29/2024 2:46 PM EST) Magnesium 2.0 1.5 - 2.6 mg/dL 08/30/2024 3:55 AM EST [facility] Blood Venous blood specimen / Unknown Venipuncture / Unknown 08/29/2024 2:46 PM EST 08/29/2024 2:46 PM EST Reshma Neumann DO LAB BLOOD ORDERABLES Final R esult [facility] [address] [place] [address] * (ABNORMAL) BASIC METABOLIC PANEL (08/29/2024 2:46 PM EST) BUN 13 6 - 20 mg/dL 08/30/2024 3:55 AM EST [facility] CREATININE 0.9 0.5 - 1.0 mg/dL 08/30/2024 3:55 AM EST [facility] EGFR 65 >=60 mL/min 08/30/2024 3:55 AM EST [facility] Comment:eGFR is calculated b ased on the CKD-EPI 2020 equation. SODIUM 139 135 - 146 mmol/L 08/30/2024 3:55 AM EST [facility] POTASSIUM 3.0(L) 3.5 - 5.1 mmol/L 08/30/2024 3:55 AM EST [facility] CHLORIDE 101 98 - 107 mmol/L 08/30/2024 3:55 AM EST [facility] CO2 31 22 - 32 mmol/L 08/30/2024 3:55 AM EST [facility] ANION GAP 7 7 - 15 mmol/L 08/30/2024 3:55 AM EST [facility] GLUCOSE 100 70 - 120 mg/dL 08/30/2024 3:55 AM EST [facility] CALCIUM 9.0 8.4 - 10.2 mg/dL 08/30/2024 3:55 AM EST [facility] Blood Venous blood specimen / Unknown Venipuncture / Unknown 08/29/2024 2:46 PM EST 08/29/2024 2:46 PM EST Reshma Neumann DO LAB BLOOD ORDERABLES Final R esult [facility] [address] [facility] [place] [address] documented in this encounter Visit Diagnoses Diagnosis Hospital discharge follow-up- Primary Other follow-up examination History of TIA (transient ischemic attack) Transient ischemic attack (TIA), and cerebral infarction without residual deficits Late onset Alzheimer's disease without behavioral disturbance (HCC) Chronic kidney disease, stage 3a (HCC) Acute cystitis without hematuria Acute cystitis Electrolyte abnormality Electrolyte and fluid disorders not elsewhere classified Symptomatic care patient Encounter for palliative care documented in this encounter Care Teams Crosscutter Rolled Glass Relationship Specialty Start Date End Date Reshma Neumann DO [address] [place] [address] [place] [address] PCP - General Internal Medicine 01/31/19 documented as of this encounter
--- OUTSIDE RECORDS SUMMARY | 2024-11-02 02:32 | External Medical Summary ---
Author Name Unknown Address Unknown Organization K01:[facility] [place] [address] [place] [address] Laboratory Report Ordering Provider Test Date Status ELIZABETH BLOODON 08/29/2024 14:46:36 Final Observation Date Value Abnormality Reference (Units ) Status Magnesium 08/29/2024 14:46:36 2.0 1.5-2.6 (m g/dL) Final Performing Location [facility] - [address] [place] [address]
--- OUTSIDE RECORDS SUMMARY | 2024-11-02 02:32 | External Medical Summary | Summary of Care ---
Author Name Unknown Organization [facility] Address [address] [facility] [address] Phone [phone] Care Team Providers Care Rrt Name Role Phone Reshma Neumann DO Primary Care Provider + [phone] Reason for Referral * Ancillary Services (Within 10 days (routine)) - Authorized Specialty Diagnoses / Procedures Referred By Link espinoza Referred To Contact HOME CARE / Palliative Medicine Diagnoses Late onset Alzheimer's disease without behavioral disturbance (HCC) Reshma Neumann [address] [place] [address] Phone: tel: fax: Referral ID Status Reason Start Date Expiration Date Visits Requested Visits Authorized [id number] Authorized Ancillary Services Required 08/29/[phone] [...] 1:50 PM EST Office Visit Family Medicine [address] [place] [phone] Reshma Neumann [address] [place] [address] Hospital discharge follow-up*; History of TIA (transient [...] daily 0 0 11/29/19 09 Active Nystatin 078439 UNIT/GM External CreamIndication s:Intertrigo Apply topically to [...] Industry Job Start Date Job End Date [employer] Not on file Not on file Not [...] Recent Admission: Patient was recently admitted to [facility]. The date of discharge was 08/18/24. Discharge [...] Take one pill daily 0 0 Nystatin 880233 UNIT/GM External Cream Apply topically to affected [...] 8:45 AM EST I sent referral to [facility] documented in this encounter Plan of Treatment Upcoming Encounters Date Type Department Care Team (Late st Contact Info) Description 09/08/2024 8:00 AM EST Office Visit Neurology Poppy Ya[address]ez [place] [address] [place], [place] [address] Daniel Srinivasan DO [address] [place] [address] 03/28/2025 2:30 PM EDT Office Visit Family Medicine [address] [place] [phone] Reshma Neumann, [address] [facility] [place] [address] Scheduled Referrals Name Type Priority Associated Diagnoses [...] (#1) 2024 07/22/2018 CKD HGB USE SMARTSET 70410 07/02/202407/02, 04/22/2022, 04/22/2022, Additional history exists CKD PHOS USE SMARTSET 45500 07/02/202402/2023, 04/22/2022, 04/08/2021, Additional history exists HbA1c [...] Final R esult [facility] [address] [place] [address] * (ABNORMAL) BASIC METABOLIC PANEL (08/29/2024 2:46 [...] Final R esult [facility] [address] [facility] [place] [address] documented in this encounter [...] care documented in this encounter Care Teams Rrt Relationship Specialty Start Date End Date Reshma Neumann DO [address] [place] [address] [place] [address] PCP - General Internal Medicine 01/31/19 documented as of this encounter
--- OUTSIDE RECORDS SUMMARY | 2024-11-02 02:32 | External Medical Summary | Summary of Care ---
Author Name Unknown Organization [facility] Address [address] [facility] [address] Phone [phone] Care Team Providers Care Chyron Operator Name Role Phone Reshma Neumann DO Primary Care Provider + [phone] Reason for Referral * Ancillary Services (Within 10 days (routine)) - Authorized Specialty Diagnoses / Procedures Referred By Link espinoza Referred To Contact HOME CARE / Palliative Medicine Diagnoses Late onset Alzheimer's disease without behavioral disturbance (HCC) Reshma Neumann [address] [place] [address] Phone: tel: fax: Referral ID Status Reason Start Date Expiration Date Visits Requested Visits Authorized [id number] Authorized Ancillary Services Required 08/29/[phone] [...] 1:50 PM EST Office Visit Family Medicine [address] [place] [phone] Reshma Neumann [address] [place] [address] Hospital discharge follow-up*; History of TIA (transient [...] daily 0 0 11/29/19 09 Active Nystatin 086102 UNIT/GM External CreamIndication s:Intertrigo Apply topically to [...] Industry Job Start Date Job End Date [employer]ENTER [employer] JOIN[employer] Not on file Not on file Not [...] DO - 08/29/2024 1:54 PM EST SUBJECTIVE: aJnet Gorman is a 74 year old female. Chief Complaint Patient presents with Hospital Follow-Up Pt "blacked out twice this morning"; still noticing facial drooping. Hospital Follow-Up Recent Admission: Patient was recently admitted to [facility]. The date of discharge was 08/18/24. Discharge report receivedand reviewed. She was brought to the ER for evaluation of left facial droop. Stroke workup was negative but neurology recommended DAPT with ASA and Plavix x 3. She was also treated for a UTI. She isalso felt to have progression of her Alzheimer's [...] Take one pill daily 0 0 Nystatin 108633 UNIT/GM External Cream Apply topically to affected [...] Reshma Neumann DO documented in this encounter Plan of Treatment Upcoming Encounters Date Type Department Care Team (Late st Contact Info) Description 09/08/2024 8:00 AM EST Office Visit Neurology Ramesh aPri [place] [address] [place] [address] Daniel Srinivasan DO [address] [facility] [place] [address] 03/28/2025 2:30 PM EDT Office Visit Family Medicine [address] [place] [phone] Reshma Neumann DO [address] [place] [address] [place] [address] Pending Results Name Type Priority Associated Diagnoses Date /Time BASIC METABOLIC PANEL Lab Routine Electrolyte abnormality 08/29/2024 2:46 PM EST MAGNESIUM Lab Routine Electrolyte abnormality 08/29/2024 2:46 PM EST Scheduled Orders Name Type Priority Associated Diagnoses Orde r Schedule BASIC METABOLIC PANEL Lab Routine Electrolyte abnormality Expected: 08/29/2024 (Approximate), Expires: 08/29/2025 MAGNESIUM Lab Routine Electrolyte abnormality Expected: 08/29/2024 (Approximate), Expires: 08/29/2025 Scheduled Referrals Name Type Priority Associated Diagnoses [...] Influenza Vaccine (FLU shot) (#1) 2024 07/22/2018 GFR 07/01/2024 12/31/2023, 02/2023, 10/28/2022, Additional history exists CKD HGB USE SMARTSET 04289 07/02/202407/02, 04/22/2022, 04/22/2022, Additional history exists CKD PHOS USE SMARTSET 93043 07/02/202402/2023, 04/22/2022, 04/08/2021, Additional history exists HbA1c 07/02/2024 07/02/2023, 03/27, 04/08/2021, Additional history exists Albumin/Creatinine Ratio 12/30/2024 024, 10/28/2022, 10/07/2021, Additional history exists Fecal Occult Blood Test [...] as of this encounter Visit Diagnoses Diagnosis Hospital discharge [...] care documented in this encounter Care Teams Chyron Operator Relationship Specialty Start Date End Date Reshma Neumann DO [address] [place] [address] [place] [phone] PCP - General Internal Medicine 01/31/19 documented as of this encounter
--- OUTSIDE RECORDS SUMMARY | 2024-11-02 02:32 | External Medical Summary | Summary of Care ---
Author Name Unknown Organization [facility] Address [address] [facility] [place] [address] Phone [phone] Care Team Providers Care Banbury Operator Name Role Phone Reshma Neumann Primary Care Provider + [phone] Reason for Visit * Reason Comments Outpatient Testing Encounter Details Date Type Department Care Team (Late st Contact Info) Description 08/29/2024 2:50 PM EST Laboratory Laboratory [address] [place] [phone] [place] [address] Electrolyte abnormality Allergies Active Allergy Reactions Criticality Noted Date Comments Lisinopril Cough Low 11/16/2016 documented as of this encounter (statuses as of 08/30/2024) Medications ASPIRIN EC 81 MG PO TBECIndications: Metabolic syndrome Take one pill daily 0 0 9 Active Nystatin 632349 UNIT/GM External CreamIndications :Intertrigo Apply topically to [...] 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 Not on file Not on file documented as of this encounter Plan of Treatment Upcoming Encounters Date Type Department Care Team (Late st Contact Info) Description 09/08/2024 8:00 AM EST Office Visit Neurology [facility] [address] [facility] [place] [address] Daniel Srinivasan [address] [place] [address] 03/28/2025 2:30 PM EDT Office Visit Family Medicine [address] [phone] [place] [address] Pending Results Name Type Priority Associated Diagnoses Date /Time BASIC METABOLIC PANEL Lab Routine Electrolyte abnormality 08/29/2024 2:46 PM EST MAGNESIUM Lab Routine Electrolyte abnormality 08/29/2024 2:46 PM EST Health Maintenance Due Date Last Done Comments Zoster Vaccines (1 of 2) 1999 DTap/Tdap Vaccines (1 - Tdap) 07/27/2005 07/26/2005, 07/26/2005 FOBT ANNUALLY,AGES 18-90 12/20/2010 12/20/2009, 09/24 Adult Wellness Visit 2015 Depression Screening 08/08/2020 08/08/2019 DXA Scan 11/12/2023 11/11/2016 COVID-19 Vaccine ( season) 2024 Influenza Vaccine (FLU shot) (#1) 2024 07/22/2018 GFR 07/01/2024 12/31/2023, 02/2023, 10/28/2022, Additional history exists CKD HGB USE SMARTSET 29656 07/02/202407/02, 04/22/2022, 04/22/2022, Additional history exists CKD PHOS USE SMARTSET 54977 07/02/202402/2023, 04/22/2022, 04/08/2021, Additional history exists HbA1c [...] as of this encounter Visit Diagnoses Diagnosis Electrolyte abnormality Electrolyte and fluid disorders not elsewhere classified documented in this encounter Care Teams Banbury Operator Relationship Specialty Start Date End Date Reshma Neumann DO [address] [place] [address] [place] [address] PCP - General Internal Medicine 01/31/19 documented as of this encounter
--- OUTSIDE RECORDS SUMMARY | 2024-11-02 02:32 | External Medical Summary ---
Author Name Unknown Address Unknown Organization K01:[facility] [place] - [address] [facility] [address] [place] [address] Laboratory Report Ordering Provider Test Date Status JANNIE BLOOD 08/29/2024 14:46:36 Final Observation Date Value Abnormality Reference (Units ) Status BUN 08/29/2024 14:46:36 13 6-20 (mg/dL) Final Creatinine 08/29/2024 14:46:36 0.9 0.5-1.0 (mg/dL) Final Glomerular filtration rate/1.73 sq M.predicted [Volume Rate/Area] in Serum, Plasma or Blood by Creatinine-based formula (CKD-EPI) 08/29/2024 14:46:36 65 >=60 (mL/min) Final eGFR is calculated based on the CKD-EPI 2020 equation. Sodium 08/29/2024 14:46:36 139 135-146 (m mol/L) Final Potassium 08/29/2024 14:46:36 3.0 Below low normal 3.5 -5.1 (mmol/L) Final Cl 08/29/2024 14:46:36 101 98-107 (mm ol/L) Final CO2 08/29/2024 14:46:36 31 22-32 (mmo l/L) Final Anion gap 08/29/2024 14:46:36 7 7-15 (mmol /L) Final Glucose 08/29/2024 14:46:36 100 70-120 (mg /dL) Final Calcium 08/29/2024 14:46:36 9.0 8.4-10.2 ( mg/dL) Final Performing Location [facility] [place] - [address] [place] [address]
--- NOTE | 2024-11-02 04:26 | History & Physical Report ---
Date of Service November 02, 2024 Assessment & Plan (1) Fecal impaction in rectum: Plan: 74-year-old female with past medical history significant for dyslipidemia, prediabetes, hypertension, hepatic steatosis, CKD stage III, status post bilateral total knee replacement, late onset Alzheimer's disease without behavioral disturbance and on home hospice for dementia was brought in because of constipation. Patient states she is doing okay. Denies headache. Denies chest pain. Denies abdominal pain. Could not get much history from the patient. Could not tell her name. Hemodynamics are okay. Seems comfortable. Called son and as per the son patient did not move her bowels for last several days. Not eating much. No recent fevers. No cough. No complaints of pain. Patient is on minced and moist diet. Does not ambulate. Patient not oriented as per son. Fecal impaction in rectum 7.9 cm distal rectal sigmoid colon stool ball associated with distal rectosigmoid colon wall thickening with surrounding infiltration suggestive of stercoral colitis Received enema in the ER and had small bowel movement Will give lactulose and another enema If no improvement will consult GI Gentle fluids Severe Alzheimer's dementia Not oriented Monitor for delirium On home hospice Hyperlipidemia On statin Hypertension On losartan Will monitor CKD stage III Creatinine 0.86 Will monitor DVT prophylaxis SCDs and heparin subcu Disposition Observation medical floor CODE STATUS DNR as per discussion with son History of Present Illness Chief Complaint: Constipation Primary Care Provider: Reshma Neumann DO 74-year-old female with past medical history significant for dyslipidemia, prediabetes, hypertension, hepatic steatosis, CKD stage III, status post bilateral total knee replacement, late onset Alzheimer's disease without behavioral disturbance and on home hospice for dementia was brought in because of constipation. Patient states she is doing okay. Denies headache. Denies chest pain. Denies abdominal pain. Could not get much history from the patient. Could not tell her name. Hemodynamics are okay. Seems comfortable. Called son and as per the son patient did not move her bowels for last several days. Not eating much. No recent fevers. No cough. No complaints of pain. Patient is on minced and moist diet. Does not ambulate. Patient not oriented as per son. Past medical history. As mentioned above. Past surgical history. Bilateral total knee arthroplasty. Laparoscopic cholecystectomy. Social history. Lives with family. No smoking. Beer rarely per epic. No drug use. Family history. Mother had arthritis. Hypertension. Memory loss in the 60s. Maternal aunt had dementia in the 60s. Father had hypertension. COPD. Sister had stroke. Allergies Allergy/AdvReac Type Severity Reaction Status Date / Time lisinopril AdvReac tightness Verified 11/01/24 20:07 in chest and dry throat Home Medications Medication Instructions Recorded Confirmed Type aspirin 81 mg tablet,delayed 81 mg PO DAILY 08/03/18 11/01/24 History release (Aspir-Low) losartan 50 mg tablet 25 mg PO QAM 08/03/18 11/01/24 History atorvastatin 40 mg tablet 40 mg PO QAM #30 tabs 08/18/24 11/01/24 Rx lorazepam 0.5 mg tablet 0.75 mg PO HS PRN Anxiety 11/01/24 11/01/24 History morphine concentrate 10 mg/0.5 mL 3 mg PO HS 11/01/24 11/01/24 History oral syringe (FOR ORAL USE ONLY) potassium chloride 10 mEq 20 meq PO QAM 11/01/24 11/01/24 History capsule,extended release sennosides 8.6 mg tablet (senna) 8.6 mg PO QAM 11/01/24 11/01/24 History Past Med/Surg History Problem List (Updated 08/29/24 @ 00:06 by Background Kaylan) Fecal impaction in rectum (Acute) Stercoral colitis (Acute) Acute constipation (Acute) Facial droop (Acute) Left leg paresthesias (Acute) Facial asymmetry Encounter for pre-operative examination Post-operative state Post-operative state Medical History (Updated 11/02/24 @ 00:42 by Nimo Esposito MD) Osteoarthritis Urinary leakage Dementia Hypertension Hyperlipidemia Surgical History (Updated 08/29/24 @ 00:06 by Background Kaylan) History of total knee replacement RT/LEFT History of cholecystectomy History of tooth extraction Family History Mother Family history of diabetes mellitus Social History Smoking Status: Never smoker Second Hand Exposure: No; Do You Dip or Chew Tobacco: No; Hx Alcohol Use: No Hx Substance Use: No Preferred Language: Guamanian Communication Ability: Unable Bacteriologist Fishery Required: No Beliefs That Will Affect Care: None Current Living Situation: Spouse Feels Safe at Home: Yes Assistive Devices: Other Review of Systems Review of Systems: Unobtainable due to cognitive status Physical Exam Physical Exam: General- Not in acute distress Head- atraumatic Eyes- PERRL. ENT- oropharynx dry Neck- supple, no JVD. Lungs- clear to auscultation no wheezing or crackles Heart- regular rhythm; no murmur, no gallop. Abdomen- normal bowel sounds, soft, nontender, no distension. Extremities- no pretibial edema, no erytehma seen Neuro- alert, and awake. Not oriented. PERRL, no facial palsy; no dysarthria Results & Data Results & Data Vital Signs (Past 12 Hours) Vital Signs Temp Pulse Pulse Resp BP BP Pulse Ox 11/02/24 03:31 51 L 11/02/24 02:25 55 L 16 110/62 11/02/24 00:32 55 L 19 100/58 L 98 11/01/24 23:35 69 11/01/24 22:49 65 22 97 11/01/24 21:20 66 23 117/67 97 11/01/24 19:38 87 11/01/24 19:27 36.7 C 90 16 130/71 100 O2 Del Method 11/02/24 03:31 11/02/24 02:25 Room Air 11/02/24 00:32 Room Air 11/01/24 23:35 11/01/24 22:49 Room Air 11/01/24 21:20 Room Air 11/01/24 19:38 11/01/24 19:27 Room Air Diagnostic Findings Laboratory Results WBC 6.83 K/ul (4.8-10.8) 11/01/24 20:03 RBC 3.93 M/uL (4.20-5.40) L 11/01/24 20:03 Hgb 12.6 g/dl (12.0-16.0) 11/01/24 20:03 Hct 38.4 % (37.0-47.0) 11/01/24 20:03 MCV 97.7 fL (80.0-100.0) 11/01/24 20:03 MCH 32.1 pg (25.0-34.0) 11/01/24 20:03 MCHC 32.8 g/dL (32.0-36.0) 11/01/24 20:03 RDW Std Deviation 45.5 fL (36.4-46.3) 11/01/24 20:03 RDW Coeff of Tatianna 12.5 % (11.5-14.5) 11/01/24 20:03 Plt Count 166 K/uL (130-400) 11/01/24 20:03 MPV 10.5 fL (9.4-12.4) 11/01/24 20:03 Immature Gran % (Auto) 0.3 % 11/01/24 20:03 Neut % (Auto) 71.8 % 11/01/24 20:03 Lymph % (Auto) 17.7 % 11/01/24 20:03 Dooly % (Auto) 8.6 % 11/01/24 20:03 Eos % (Auto) 1.0 % 11/01/24 20:03 Baso % (Auto) 0.6 % 11/01/24 20:03 Neut # (Auto) 4.90 K/uL (1.40-6.50) 11/01/24 20:03 Lymph # (Auto) 1.21 K/uL (1.20-3.40) 11/01/24 20:03 Dooly # (Auto) 0.59 K/uL (0.11-0.59) 11/01/24 20:03 Eos # (Auto) 0.07 K/uL (0.00-0.50) 11/01/24 20:03 Baso # (Auto) 0.04 K/uL (0.00-0.20) 11/01/24 20:03 Immature Gran # (Auto) 0.02 K/uL (0.01-0.20) 11/01/24 20:03 Sodium 141 mmol/L (136-145) 11/01/24 20:03 Potassium 4.1 mmol/L (3.5-5.1) 11/01/24 20:03 Chloride 106 mmol/L (98-107) 11/01/24 20:03 Carbon Dioxide 32 mmol/L (21-32) 11/01/24 20:03 Anion Gap 3 (3-11) 11/01/24 20:03 BUN 19 mg/dl (6-23) 11/01/24 20:03 Creatinine 0.86 mg/dl (0.6-1.2) 11/01/24 20:03 Est Cr Clr Drug Dosing Not Reportable 11/01/24 20:03 eGFR 70.41 11/01/24 20:03 BUN/Creatinine Ratio 22.1 (10-20) H 11/01/24 20:03 Glucose 126 mg/dl (70-99(Fasting)) H 11/01/24 20:03 Lactate 1.0 mmol/L (0.4-2.0) 11/01/24 20:03 Calcium 8.9 mg/dl (8.6-10.3) 11/01/24 20:03 Total Bilirubin 0.7 mg/dl (0.2-1.0) 11/01/24 20:03 AST 26 U/L (13-39) 11/01/24 20:03 ALT 21 U/L (7-52) 11/01/24 20:03 Alkaline Phosphatase 148 U/L (34-104) H 11/01/24 20:03 Total Protein 6.2 gm/dl (6.0-8.3) 11/01/24 20:03 Albumin 3.8 gm/dl (3.4-5.0) 11/01/24 20:03 Globulin 2.4 gm/dl (2.5-4.0) L 11/01/24 20:03 Albumin/Globulin Ratio 1.6 (0.9-2) 11/01/24 20:03 Lipase 24 U/L (11-82) 11/01/24 20:03 Impressions KUB X-Ray 11/01/24 19:31 Exam(s): XR KUB EXAM: XR Abdomen, 4 Views CLINICAL HISTORY: abd pain; constipation. TECHNIQUE: Frontal view of the abdomen/pelvis with upright view of the abdomen and one or more additional views. COMPARISON: No relevant prior studies available. FINDINGS: Abundant stool throughout the colon to the rectum consistent with constipation. Bowel gas pattern otherwise unremarkable. Pelvic probable vascular calcification. Degenerative changes lumbar spine and hips. IMPRESSION: Abundant stool consistent with constipation. Electronically signed by: Rickie Arzola M.D. 11/01/24 23:00 PM Abdomen/Pelvis CT 11/01/24 19:59 Exam(s): CT ABDOMEN + PELVIS Without Contrast EXAM: CT Abdomen and Pelvis Without Intravenous Contrast CLINICAL HISTORY: constipation; lower abd pain. TECHNIQUE: Axial computed tomography images of the abdomen and pelvis without intravenous contrast. CTDI is 14.53 mGy and DLP is 701.99 mGy-cm. Automated exposure control was utilized for the study. A dose lowering technique was utilized adhering to the principles of ALARA. COMPARISON: 07/29/2024 FINDINGS: Lung bases: Unremarkable. No mass. No consolidation. ABDOMEN: Liver: Unremarkable. Gallbladder and bile ducts: Post cholecystectomy. No ductal dilation. Pancreas: Unremarkable. No ductal dilation. Spleen: Unremarkable. No splenomegaly. Adrenals: Unremarkable. No mass. Kidneys and ureters: No obstructive uropathy. No obstructing renal or ureteral calculi. No hydronephrosis or hydroureter. Stomach and bowel: No obstruction or ileus. Sigmoid colon diverticulosis without evidence for diverticulitis. Abundant stool throughout the colon with a prominent 7.9 cm distal rectal sigmoid colon stool ball. Associated distal rectal sigmoid colon wall thickening with surrounding infiltration suggesting stercoral colitis. PELVIS: Appendix: No findings to suggest acute appendicitis. Bladder: Partially contracted with nonspecific wall thickening. No stones. Reproductive: Atrophic uterus with calcification, likely fibroid. Ovaries not well characterized. ABDOMEN and PELVIS: Intraperitoneal space: No free air. No free fluid. Bones/joints: No acute fracture. Soft tissues: Unremarkable. Vasculature: Unremarkable. No abdominal aortic aneurysm. Lymph nodes: Unremarkable. No enlarged lymph nodes. IMPRESSION: Abundant stool throughout the colon with a prominent 7.9 cm distal rectal sigmoid colon stool ball. Associated distal rectal sigmoid colon wall thickening with surrounding infiltration suggesting stercoral colitis. Sigmoid colon diverticulosis without evidence for acute diverticulitis. Otherwise no change. Electronically signed by: Rickie Arzola M.D. 11/01/24 22:57 PM Code Status & VTE Plan VTE Prophylaxis Plan VTE Prophylaxis will be ordered: Yes
[2024-11-02 07:49] VITALS: BP 114/63; PULSE 62; RESP 14; O2SAT 95
[2024-11-02] MEDS ORDERED: POLYETHYLENE (MIRALAX) 17 GM PACK PO PRN (08:58)
[2024-11-02] MEDS ORDERED: ACETAMINOPHEN 325 MG TAB PO PRN (08:58)
[2024-11-02] MEDS ORDERED: LORazepam 0.5 MG TAB PO PRN (08:58)
[2024-11-02] MEDS: LACTULOSE SYRUP 30 GM/45 ML UDP PO STA (09:46)
[2024-11-02] MEDS: LOSARTAN POTASSIUM 25 MG TAB PO SCH (09:48)
[2024-11-02] MEDS: ATORVASTATIN 40 MG TAB PO SCH (09:48)
[2024-11-02] MEDS: ASPIRIN 81 MG ECTAB PO SCH (09:48)
[2024-11-02] MEDS: HEPARIN SOD 5,000 UNIT/0.5 ML VIAL SQ SCH (09:50)
[2024-11-02] MEDS: POTASSIUM CHLORIDE 10 MEQ TABCR PO SCH (09:50)
[2024-11-02] MEDS: SENNA 8.6 MG TAB PO SCH (09:50)
[2024-11-02] MEDS: LACTATED RINGER'S 1,000 ML IV SCH (09:55)
--- NOTE | 2024-11-02 17:29 | Discharge Summary ---
Discharge Summary Date of Service November 02, 2024 Principal Dx & Hospital Course #1 = Principal Diagnosis (1) Fecal impaction in rectum: 74-year-old female with past medical history significant for dyslipidemia, prediabetes, hypertension, hepatic steatosis, CKD stage III, status post bilateral total knee replacement, late onset Alzheimer's disease without behavioral disturbance and on home hospice for dementia was brought in because of constipation. Patient states she is doing okay. Denies headache. Denies chest pain. Denies abdominal pain. Could not get much history from the patient. Could not tell her name. Hemodynamics are okay. Seems comfortable. Called son and as per the son patient did not move her bowels for last several days. Not eating much. No recent fevers. No cough. No complaints of pain. Patient is on minced and moist diet. Does not ambulate. Patient not oriented as per son. Fecal impaction in rectum 7.9 cm distal rectal sigmoid colon stool ball associated with distal rectosigmoid colon wall thickening with surrounding infiltration suggestive of stercoral colitis Received enema in the ER and had small bowel movement Will give lactulose and another enema If no improvement will consult GI Gentle fluids Severe Alzheimer's dementia Not oriented Monitor for delirium On home hospice Hyperlipidemia On statin Hypertension On losartan Will monitor CKD stage III Creatinine 0.86 Will monitor DVT prophylaxis SCDs and heparin subcu Disposition Observation medical floor CODE STATUS DNR as per discussion with son Notes For Next Care Provider 74-year-old female with past medical history significant for dyslipidemia, prediabetes, hypertension, hepatic steatosis, CKD stage III, status post bilateral total knee replacement, late onset Alzheimer's disease without behavioral disturbance and on home hospice for dementia was brought in because of constipation. On medicine, given enemas and suppositories with several BM. ON 11/02/2024 discharged patient home, discussed options to prevent rehospitalization and need for further discussions with hospice agency. Medication Changes From Visit -see below Admission HPI Per Admitting Provider 74-year-old female with past medical history significant for dyslipidemia, prediabetes, hypertension, hepatic steatosis, CKD stage III, status post bilateral total knee replacement, late onset Alzheimer's disease without behavioral disturbance and on home hospice for dementia was brought in because of constipation. Patient states she is doing okay. Denies headache. Denies chest pain. Denies abdominal pain. Could not get much history from the patient. Could not tell her name. Hemodynamics are okay. Seems comfortable. Called son and as per the son patient did not move her bowels for last several days. Not eating much. No recent fevers. No cough. No complaints of pain. Patient is on minced and moist diet. Does not ambulate. Patient not oriented as per son. Past medical history. As mentioned above. Past surgical history. Bilateral total knee arthroplasty. Laparoscopic cholecystectomy. Social history. Lives with family. No smoking. Beer rarely per epic. No drug use. Family history. Mother had arthritis. Hypertension. Memory loss in the 60s. Maternal aunt had dementia in the 60s. Father had hypertension. COPD. Sister had stroke. Updated Medication List Medication Instructions Recorded Confirmed Type aspirin 81 mg tablet,delayed 81 mg PO DAILY 08/03/18 11/01/24 History release (Aspir-Low) atorvastatin 40 mg tablet 40 mg PO QAM #30 tabs 08/18/24 11/01/24 Rx lorazepam 0.5 mg tablet 0.75 mg PO HS PRN Anxiety 11/01/24 11/01/24 History morphine concentrate 10 mg/0.5 mL 3 mg PO HS 11/01/24 11/01/24 History oral syringe (FOR ORAL USE ONLY) potassium chloride 10 mEq 20 meq PO QAM 11/01/24 11/01/24 History capsule,extended release sennosides 8.6 mg tablet (senna) 8.6 mg PO QAM 11/01/24 11/01/24 History bisacodyl 10 mg rectal suppository 10 mg UT DAILY PRN constipation 11/02/24 Rx #30 ea mineral oil 118 ml UT DAILY PRN constipation 11/02/24 Rx #133 mL polyethylene glycol 3350 17 17 g PO DAILY PRN constipation 11/02/24 Rx gram/dose oral powder (Miralax) #238 grams Hospital Stay Data Consultations 11/02/24 00:44 ED Decision to Admit Stat Diagnostic Imagining Performed 11/01/24 19:59 CT Abd and Pelvis [CT abd pelvis wo con] Stat Pending Results Patient Have Any Pending Studies at Discharge: No Discharge Instructions Given to Patient (Per Discharging Provider) 1. Discuss this hospitalization with hospice agency of choice. 2. Given enema's/suppository if needed for constipation. Total Time Total Time Spent Total Time Spent (In Minutes): I spent a total of 35 minutes in direct patient care, including [id number] time with the patient and/or family, reviewing medical records, ordering and reviewing diagnostic tests, and coordinating care with other healthcare providers. This time includes: history taking, physical examination, medical decision making, counseling, ECG interpretation, imaging interpretation, lab interpretation, orders, and education, excluding time spent in the performance of separately billed services.
[2024-11-02] MEDS ORDERED: MoRPHine SULFATE 10 MG/0.5 ML UDP PO SCH (21:00)
== END 2024-11-02 14:30 | disposition hospice, home (50) ==
LOC: ED 19:19 → 2N 19:19